=== PATIENT | female | born 1930 | race Caucasian/White ===

== ENCOUNTER 2019-03-25 10:29 | Inpatient (IN) | payer MEDICARE, OTHER ==
[~2019-03-25] VITALS: Ht 172.7 cm; Wt 50.3 kg
[~2019-03-25 10:29] MED LIST: ALBUTEROL0.63 MG/3 PO; BUDESONIDE0.5 MG/2 M NEB; CALCIUM500 MG PO; L ARGININE; LEVOTHYROXINE75 MCG PO; MONTELUKAST SOD10 MG PO; MULTIVITAMIN; NORCO 7.5-3251 EACH PO; OMEPRAZOLE20 M1 PO; PERFOROMIS20 MCG/2 M PO; PROAIR INHALER; TRAMADOL PO; VITAMIN C1000 MG PO; [UNRECOGNIZED DRUG - CODE]; [UNRECOGNIZED DRUG - OTHER]; [UNRECOGNIZED DRUG - OTHER]; [UNRECOGNIZED DRUG - OTHER]
--- NOTE | 2019-03-25 10:53 | NUR ---
rec'd report in walking rounds with rohan carias for continuity of care
[2019-03-25 11:01] LABS: BASOPHILS % 0.2 % (0.0-1.0); EOSINOPHILS # (AUTO) 0.2 (0.0-0.4); EOSINOPHILS % 1.7 % (0.0-6.0); HEMATOCRIT 32.2 % (34.2-44.1); HEMOGLOBIN 10.6 g/dL (12.0-16.0); LYMPHOCYTES # (AUTO) 1.8 (1.0-3.2); LYMPHOCYTES % 13.6 % (18.0-39.1); MEAN CORPUSCULAR HEMOGLOBIN 29.4 pg (28-32); MEAN CORPUSCULAR HGB CONC 32.9 g/dL (31-35); MEAN CORPUSCULAR VOLUME 89.4 fL (81-99); MONOCYTES # (AUTO) 0.7 (0.2-0.8); MONOCYTES % 5.3 % (4.4-11.3); NEUTROPHILS # (AUTO) 10.5 (2.1-6.9); NEUTROPHILS % 78.2 % (38.7-80.0); PLATELET COUNT 415 x10e3/uL (140-360)
--- NOTE | 2019-03-25 11:05 | NUR ---
report to primary nurse.
[2019-03-25 11:15] LABS: BILIRUBIN,URINE NEGATIVE (NEGATIVE); CLARITY,URINE CLEAR (CLEAR); COLOR,URINE YELLOW (YELLOW); KETONES,URINE NEGATIVE (NEGATIVE); LEUKOCYTE ESTERASE ,URINE NEGATIVE (NEGATIVE); NITRITE,URINE NEGATIVE (NEGATIVE); PROTEIN,URINE DIPSTICK NEGATIVE (NEGATIVE); URINE UROBILINOGEN 0.2 mg/dL (0.2 - 1)
[2019-03-25 11:24] LABS: INR 1.02; PROTHROMBIN TIME 13.9 seconds (11.9-14.5)
[2019-03-25 11:25] LABS: BACTERIA,URINE MODERATE /HPF; EPITHELIAL CELLS,URINE FEW /LPF; RBC,URINE 0-5 /HPF (0-5); WBC,URINE (MAN) 0-5 /HPF (0-5)
[2019-03-25 11:32] LABS: ALANINE AMINOTRANSFERASE 10 IU/L (0-55); ALBUMIN 2.8 g/dL (3.5-5.0); ALBUMIN/GLOBULIN RATIO 1.1 (0.8-2.0); ALKALINE PHOSPHATASE 65 IU/L (40-150); ANION GAP 13.3 mmol/L (8-16); BLOOD UREA NITROGEN 14 mg/dL (7-26); BUN/CREATININE RATIO 18 (6-25); CALCIUM 8.9 mg/dL (8.4-10.2); CARBON DIOXIDE 26 mmol/L (22-29); CHLORIDE 100 mmol/L (98-107); CREATINE KINASE 29 IU/L (29-168); CREATININE, SERUM 0.78 mg/dL (0.57-1.11); EST GLOMERULAR FILTRATION RATE > 60 ML/MIN (60-); GLUCOSE 182 mg/dL (74-118); MAGNESIUM 1.9 MG/DL (1.3-2.1); POTASSIUM 4.3 mmol/L (3.5-5.1); SODIUM 135 mmol/L (136-145)
--- NOTE | 2019-03-25 11:38 | Diagnostic Imaging Report ---
Exam: Head CT without contrast History: Syncope Comparison studies: None Technique: Axial images were obtained from the skull base to the vertex. Coronal and sagittal images reconstructed from the axial data. Dose modulation, iterative reconstruction, and/or weight based adjustment of the mA/kV was utilized to reduce the radiation dose to as low as reasonably achievable. Radiation dose: Total DLP: 941.8 mGy*cm. Estimated effective dose: DLP x 0.015 Intravenous contrast: None Findings: Due to suboptimal patient positioning related to the patient's condition, large ulvol-sv-emyi imaging was necessary to complete this exam. There is somewhat limits evaluation of fine detail. In spite of limitations: Scalp: No abnormalities. Bones: No fractures, blastic or lytic lesions. Brain sulci: Moderately prompt. Ventricles: Moderate compensatory dilatation. No hydrocephalus. Extra-axial spaces: No masses, no fluid collection. Parenchyma: No mass, acute hemorrhage or acute or chronic cortical insults. Confluent hypodensities in the supratentorial white matter are nonspecific but are most compatible with chronic microvascular ischemic changes. Sellar/suprasellar region: No abnormalities. Craniocervical junction: Patent foramen magnum. No Chiari one malformation. Included paranasal sinuses: Clear. Middle ear and mastoid cavities: Clear. Incidental findings: Multilevel degenerative changes in the included cervical spine. Atherosclerotic calcifications in the carotid siphons and intradural vertebral arteries. IMPRESSION: No acute intracranial abnormalities. Chronic findings: 1. Moderate generalized parenchymal volume loss. 2. Moderate chronic microvascular ischemic changes. Signed by: Dr. Wisam Huitron M.D. on 03/25/2019 11:35 AM
--- NOTE | 2019-03-25 11:45 | NUR ---
Shelby ren in [facility] - 03/25/19 at 1145 by TESS pt [facility]
--- NOTE | 2019-03-25 11:46 | NUR ---
pt. stated, "my stomach hurts when i breath."
[2019-03-25 11:51] LABS: THYROID STIMULATING HORMONE 2.877 uIU/mL (0.350-4.940)
--- NOTE | 2019-03-25 12:01 | Diagnostic Imaging Report ---
EXAMINATION: CHEST SINGLE (PORTABLE) INDICATION: Syncope COMPARISON: None FINDINGS: LINES/TUBES:EKG leads overlie the chest. LUNGS:The lungs are mildly hyperinflated. There is bilateral bronchiectasis and bronchial wall thickening. Bilateral emphysematous changes. No focal consolidation or pulmonary edema. PLEURA:No pleural effusion or pneumothorax. MEDIASTINUM:The cardiomediastinal silhouette appears normal in size and shape. Atherosclerotic calcifications of the thoracic aorta. BONES/SOFT TISSUES:No acute osseous injury. ABDOMEN:No free air under the diaphragm. IMPRESSION: Hyperinflated lungs and emphysematous changes. Diffuse mild bronchiectasis and bronchial wall thickening can be seen with bronchitis. Signed by: Vasiliy Trejo MD on 03/25/2019 11:57 AM
--- NOTE | 2019-03-25 12:31 | NUR ---
PLACED ON THE BEDPAN
--- NOTE | 2019-03-25 14:05 | NUR ---
ATTEMPTED TO ASSIST PT TO BSC AND SHE BECAME VERY SHORT OF BREATH. PLACED ON BEDPAN AT THIS TIME. UPDATED ON PENDING ADMIT TO RM 102.
--- OUTSIDE RECORDS SUMMARY | 2019-03-25 14:26 | XMS REPORT ---
Author Author [facility] Address Unknown Phone Unavailable Care Team Providers Care Lead Nurse Name Role Phone Newton FINK Unavailable Unavailable Problems This patient has no known problems. Allergies, Adverse Reactions, Alerts This patient has no known allergies or adverse reactions. Medications This patient has no known medications. Results Test Description Test Time Test Comments Text Results Atomic Results Result Comments CHEST SINGLE (PORTABLE) 2019-03-25 11:55:00 [place] [address] Patient Name: DARYL MCDONALD MR #: [id number] : 1930 Age/Sex: 88/F Req #: [id number] Adm Physician: Ordered by: MARTÍN BYERS ASSOCIATE PUBLISHER Report #: [id number] Location: ER Room/Bed: Procedure: [id number] DX/CHEST SINGLE (PORTABLE) Exam Date: 03/25/19 Exam Time: 1105 REPORT STATUS: Signed EXAMINATION: CHEST SINGLE (PORTABLE) I NDICATION: Syncope COMPARISON: None FINDINGS: LINES/TUBES:EKG leads overlie the chest. LUNGS:The lungs are mildly hyperinflated. There is bilateral bronchiectasis and bronchial wall thickening. Bilateral emphysematous changes. No focal consolidation or pulmonary edema. PLEURA:No pleural effusion or pneumothorax. MEDIASTINUM:The cardiomediastinal silhouette appears normal in size and shape. Atherosclerotic calcifications of the thoracic aorta. BONES/SOFT TISSUES:No acute osseous injury. ABDOMEN:No free air under the diaphragm. IMPRESSION: Hyperinflated lungs and emphysematous changes. Diffuse mild bronchiectasis and bronchial wall thickening can be seen with bronchitis. Signed by: Cam Pinon MD on 03/25/2019 11:57 AM Dictated By: CAM PINON MD 1157 Transcribed By: KIMBER on 03/25/19 1157 COPY TO: MARTÍN BYERS NP CT BRAIN WO 2019-03-25 11:27:00 [place] [address] Patient Name: DARYL MCDONALD MR #: [id number] : 1930 Age/Sex: 88/F Req #: [id number] Adm Physician: Ordered by: MARTÍN BYERS ASSOCIATE PUBLISHER Report #: [id number] Location: ER Room/Bed: Procedure: [id number] CT/CT BRAIN WO Exam Date: 03/25/19 Exam Time: 1100 REPORT STATUS: Signed Exam: Head CT without contrast History: Syncope Compari son studies: None Technique: Axial images were obtained from the skull base to the vertex. Coronal and sagittal images reconstructed from the axial data. Dose modulation, iterative reconstruction, and/or weight based adjustment of the mA/kV was utilized to reduce the radiation dose to as low as reasonably achievable. Radiation dose: Total DLP: 941.8 mGy*cm. Estimated effective dose: DLP x 0.015 Intravenous contrast: None Findings: Due to suboptimal patient positioning related to the patient's condition, large ewhvz-kw-jirz imaging was necessary to complete this exam. There is somewhat limits evaluation of fine detail. In spite of limitations: Scalp: No abnormalities. Bones: No fractures, blastic or lytic lesions. Brain sulci: Moderately prompt. Ventricles: Moderate compensatory dilatation. No hydrocephalus. Extra-axial spaces: No masses, no fluid collection. Parenchyma: No mass, acute hemorrhage or acute or chronic cortical insults. Confluent hypodensities in the supratentorial white matter are nonspecific but are most compatible with chronic microvascular ischemic changes. Sellar/suprasellar region: No abnormalities. Craniocervical junction: Patent foramen magnum. No Chiari one malformation. Included paranasal sinuses: Clear. Middle ear and mastoid cavities: Clear. Incidental findings: Multilevel degenerative changes in the included cervical spine. Atherosclerotic calcifications in the carotid siphons and intradural vertebral arteries. IMPRESSION: No acute intracranial abnorm alities. Chronic findings: 1. Moderate generalized parenchymal volume loss. 2. Moderate chronic microvascular ischemic changes. Signed by: Dr. Debora Huitron M.D. on 03/25/2019 11:35 AM Dictated By: DEBORA HUITRON MD 1135 Transcribed By: KIMBER on 03/25/19 1139 COPY TO: MARTÍN BYERS NP
--- NOTE | 2019-03-25 14:52 | NUR ---
Lora CALLED FOR [facility] FOR THIS PT. AND SPOKE WITH YULISA
[2019-03-25] MEDS ORDERED: ALBUTEROL/IPRATROPIUM 3 ML NEB NEB ONE (15:00)
--- NOTE | 2019-03-25 15:01 | NUR ---
TELE #2 PLACED ON THE PT. YULY TX IN PROGRESS. REPORT CALLED TO M-S 1 FOR THIS PT TO GO TO RM 102
--- NOTE | 2019-03-25 15:16 | Diagnostic Imaging Report ---
EXAM: CT Abdomen and Pelvis WITH intravenous contrast INDICATION: Abdominal pain COMPARISON: None. TECHNIQUE: Abdomen and pelvis were scanned utilizing a multidetector helical scanner from the lung base to the pubic symphysis after administration of IV contrast. Coronal and sagittal reformations were obtained. Routine protocol was performed. Scan was performed during portal venous phase. IV CONTRAST: 100mL of Isovue 370 ORAL CONTRAST: Water RADIATION DOSE: Total DLP: 200.9 mGy*cm Dose modulation, iterative reconstruction, and/or weight based adjustment of the mA/kV was utilized to reduce the radiation dose to as low as reasonably achievable. FINDINGS: LOWER THORAX: Moderate sliding hiatal hernia. HEPATOBILIARY: 1.3 cm hypodense right hepatic lesion (series 2 image 13) is indeterminate on this single phase CT. No other focal liver lesions. No biliary ductal dilation. Unremarkable gallbladder. SPLEEN: No splenomegaly. PANCREAS: No focal masses or ductal dilatation. ADRENALS: No adrenal nodules. KIDNEYS/URETERS: No hydronephrosis, stones, or solid mass lesions. PELVIC ORGANS/BLADDER: Evaluation limited by streak artifact related to right total hip replacement. PERITONEUM / RETROPERITONEUM: There is a 10.0 x 8.3 x 10.0 cm retroperitoneal mass with central hypoattenuation consistent with necrosis. The mass extends from the level of the aortic bifurcation inferiorly into the pelvis. There is mass effect on adjacent loops of bowel. No definite encasement of adjacent neurovascular structures. Small volume ascites in the abdomen and pelvis. VESSELS: Diffuse atherosclerotic calcifications of the nonaneurysmal abdominal aorta and major branches. GI TRACT: No abnormal bowel wall thickening. No bowel obstruction. BONES AND SOFT TISSUES: Diffuse osteopenia. Postoperative findings of right total hip replacement. No acute osseous injury. No suspicious lytic or blastic lesions. Degenerative changes of the visualized spine. Grade 1 retrolisthesis at L2-3 and L3-4. 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 Findings are concerning for malignancy, with lymphoma likely the leading differential. Moderate sliding hiatal hernia. 1.3cm hypodense right liver lesion is indeterminate on this single phase CT. Signed by: Vasiliy Trejo MD on 03/25/2019 3:13 PM
--- NOTE | 2019-03-25 15:35 | NUR ---
Received patient via stretcher from ER. Accompanied by daughters. JOSE GOX3 to time, person, place. Respirations even and unlabored. O2 3L NC. Oriented patient and family to room. Instructed to use call light for assistance.
[2019-03-25 16:01] VITALS: BP 138/80
[2019-03-25] MEDS ORDERED: VITAMIN D250000 UNIT PO (16:13)
[2019-03-25] MEDS ORDERED: melatonin PO (16:13)
[2019-03-25] MEDS ORDERED: ARGININE PO (16:13)
[2019-03-25] MEDS ORDERED: HYDROXYZINE HCL25 MG PO (16:13)
[2019-03-25] MEDS ORDERED: MULTI-VITAMIN1 EACH PO (16:13)
[2019-03-25] MEDS ORDERED: [UNRECOGNIZED DRUG - OTHER] PO (16:13)
--- NOTE | 2019-03-25 16:15 | NUR ---
Notified of consult. declined consult. Paged to notify.
[2019-03-25 16:16] VITALS: BP 138/80
[2019-03-25 16:23] VITALS: BP 138/80
--- NOTE | 2019-03-25 17:35 | NUR ---
Patient states "I feel the urge to void, but I cant" Bladder scan done 183ml noted. Paged to notify of patient's status.
--- NOTE | 2019-03-25 17:55 | NUR ---
16F pearson catheter inserted by Ping Schneider RN using sterile technique. Edgar LOONEY at bedside. clear yellow urine draining.
[2019-03-25] MEDS ORDERED: SODIUM CHLORIDE 0.9% 50ML 50 ML ONE (18:24)
[2019-03-25] MEDS ORDERED: IOPAMIDOL 370 MG/ML 200 ML INFUS..BTL INJ ONE (18:24)
[2019-03-25] MEDS ORDERED: MELATONIN 10 MG PO PRN (18:45)
[2019-03-25] MEDS ORDERED: HYDROXYZINE HCL 25 MG TAB PO PRN (18:45)
--- NOTE | 2019-03-25 18:49 | NUR ---
Report given to oncoming nurse of patient's status. Patient resting in bed. No s/s of acute distress noted. Side rails upx2, call light within reach, bed alarm on.
--- NOTE | 2019-03-25 19:15 | NUR ---
Received bedside report from day nurse. Patient resting in bed, alert and oriented, no s/s of distress or c/o pain at this time. All safety measures in place. Will continue to monitor.
--- NOTE | 2019-03-25 19:16 | NUR ---
Per day nurse, 200 ml of urine was noted upon Childers insertion.
--- NOTE | 2019-03-25 19:17 | NUR ---
Per day nurse, Dr. Morales is okay with brain MRI, carotid doppler, and echo being done tomorrow.
[2019-03-25] MEDS ORDERED: MELATONIN 5 MG TABLET PO PRN (19:30)
[2019-03-25] MEDS ORDERED: ACETAMINOPHEN 325 MG TAB PO PRN (19:30)
[2019-03-25] MEDS ORDERED: SODIUM CHLORIDE 0.9% 1000ML 1,000 ML IV SCH (19:30)
--- NOTE | 2019-03-25 19:56 | NUR ---
Patient requested breathing treatments. Called Dr. Morales and received orders for breathing treatments every six hours as needed. Respiratory therapist notified. Patient does not appear to be in respiratory distress at this time. All safety measures in place. Will continue to monitor.
[2019-03-25 20:27] VITALS: BP 115/66
[2019-03-25] MEDS: MONTELUKAST SODIUM 10 MG TAB PO SCH (20:32)
[2019-03-25] MEDS: ONDANSETRON HCL INJ 2MG/ML 2ML 2 MG/ML VIAL IV PRN (20:44)
[2019-03-25] MEDS: HYDROCODONE/APAP 5MG-325MG TAB PO PRN (20:44)
[2019-03-25] MEDS: ALBUTEROL/IPRATROPIUM 3 ML NEB NEB PRN (20:50)
[2019-03-25 21:00] VITALS: BP 115/66
[2019-03-26] VITALS (8 sets, daily range): BP systolic 115–136; BP diastolic 57–79
[2019-03-26] MEDS: ALBUTEROL/IPRATROPIUM 3 ML NEB NEB PRN ×3 (02:40→11:13)
[2019-03-26] MEDS: LEVOTHYROXINE SODIUM 75 MCG TAB PO SCH (06:18)
--- NOTE | 2019-03-26 06:20 | NUR ---
Alvarado DUNCAN'tyler per Dr. Morales's orders. Balloon intact upon removal. Patient due to void. Bedside commode placed at bedside. Patient instructed to call for assistance when getting out of bed, verbalized understanding. Call light within reach. All safety measures in place. Will continue to monitor.
--- NOTE | 2019-03-26 06:38 | NUR ---
Patient reports difficulty breathing. Called Dr. Morales, received orders to stop fluids and change breathing treatments to every four hours as needed. Will continue to monitor patient.
--- NOTE | 2019-03-26 06:45 | NUR ---
Patient requesting breathing treatment at this time. termite control technician notified, currently on way. Will continue to monitor patient. Bed in high rizvi's position. All safety measures in place.
--- NOTE | 2019-03-26 07:21 | NUR ---
Patient requested head of bed to be lowered. Still complaining of difficulty breathing. No adventitious breath sounds noted bilaterally. Chest x-ray ordered per Dr. Morales. All safety measures in place. Will continue to monitor patient. Addendum: 03/26/19 at 0723 by Carrie Vee RN HOB lowered to semi-Laguerre's position per patient request. States it helps her feel less anxious and less short of breath.
[2019-03-26 08:12] LABS: BASOPHILS % 0.1 % (0.0-1.0); HEMATOCRIT 31.4 % (34.2-44.1); HEMOGLOBIN 10.3 g/dL (12.0-16.0); LYMPHOCYTES # (AUTO) 1.4 (1.0-3.2); LYMPHOCYTES % 5.2 % (18.0-39.1); MEAN CORPUSCULAR HEMOGLOBIN 29.4 pg (28-32); MEAN CORPUSCULAR HGB CONC 32.8 g/dL (31-35); MEAN CORPUSCULAR VOLUME 89.7 fL (81-99); MONOCYTES # (AUTO) 2.2 (0.2-0.8); MONOCYTES % 8.1 % (4.4-11.3); NEUTROPHILS # (AUTO) 23.6 (2.1-6.9); NEUTROPHILS % 85.9 % (38.7-80.0); PLATELET COUNT 419 x10e3/uL (140-360); RED CELL DISTRIBUTION WIDTH 13.3 % (11.7-14.4)
[2019-03-26] MEDS ORDERED: CEFTRIAXONE SOD 1 GM VIAL IV SCH (08:15)
--- NOTE | 2019-03-26 08:19 | Diagnostic Imaging Report ---
Examination: Single AP view of the chest. COMPARISON: 03/25/2019 INDICATION: Dyspnea DISCUSSION: As before, the lungs are hyperinflated with scattered foci of perihilar bronchiectasis. No new consolidation or effusion. Stable cardiomediastinal contour with tortuosity and atherosclerotic calcification of the thoracic aorta. Small hiatal hernia. No acute osseous abnormalities. Bilateral acromioclavicular and glenohumeral degenerative changes. 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 Signed by: Dr. Wisam Bosch M.D. on 03/26/2019 8:16 AM
[2019-03-26 08:21] LABS: ANION GAP 17.7 mmol/L (8-16); BLOOD UREA NITROGEN 24 mg/dL (7-26); BUN/CREATININE RATIO 31 (6-25); CARBON DIOXIDE 23 mmol/L (22-29); CHLORIDE 98 mmol/L (98-107); CREATININE, SERUM 0.78 mg/dL (0.57-1.11); EST GLOMERULAR FILTRATION RATE > 60 ML/MIN (60-); GLUCOSE 117 mg/dL (74-118); POTASSIUM 4.7 mmol/L (3.5-5.1); SODIUM 134 mmol/L (136-145)
--- NOTE | 2019-03-26 08:21 | NUR ---
Report given to charge nurse. Rounded on patient with Dr. Morales. Received additional orders. Patient resting in bed, no s/s of distress or c/o pain at this time. All safety measures in place.
[2019-03-26] MEDS ORDERED: FUROSEMIDE INJ 10 MG/ML 4 ML VIAL IV NR (08:30)
[2019-03-26] MEDS: MULTIVITAMINS/MINERALS TAB PO SCH (09:00)
[2019-03-26] MEDS: [UNRECOGNIZED DRUG - OTHER] PO SCH (09:00)
[2019-03-26] MEDS: ARGININE PO SCH (09:00)
[2019-03-26] MEDS: DOCUSATE SODIUM 100 MG CAP PO SCH ×2 (09:00→17:01)
[2019-03-26] MEDS ORDERED: PANTOPRAZOLE SOD 40 MG TABEC PO SCH (09:00)
[2019-03-26] MEDS: ONDANSETRON HCL INJ 2MG/ML 2ML 2 MG/ML VIAL IV PRN ×3 (09:35→23:01)
--- NOTE | 2019-03-26 09:50 | NUR ---
Assessment completed and the family 5 Addendum: 03/26/19 at 0955 by Ofelia Looney RN cont above note. The family reports that the pt has not voided since the cath was removed and palpatation of the bladder area reveals tenderness and pain.
[2019-03-26 10:21] LABS: BAND NEUTROPHILS % (MANUAL) 1 %; EOSINOPHILS % (MANUAL) 1 % (0-7); LYMPHOCYTES % (MANUAL) 5 % (19-48); MONOCYTES % (MANUAL) 8 % (3.4-9.0); NEUTROPHILS % (MANUAL) 85 % (40-74)
[2019-03-26 10:22] LABS: BURR CELLS SLIGHT; POIKILOCYTOSIS SLIGHT
[2019-03-26 10:23] LABS: PLATELET ESTIMATE SLIGHTLY INCREASED; PLATELET MORPHOLOGY COMMENT NORMAL; RBC MORPHOLOGY COMMENT ABNORMAL
--- NOTE | 2019-03-26 10:43 | NUR ---
Bladder scan completed prior to replacing the catheter and the scan reveals greater than 300cc's and the pt. does not have iv fluids although she is n p o . The iv fluids were red Addendum: 03/26/19 at 1048 by Ofelia Looney RN restarted and the pt. and family reminded to maintain n p o status. dark yellow urinf was returned.
[2019-03-26] MEDS: CEFTRIAXONE SOD 1 GM/NS 50 ML 50 ML IV SCH (10:55)
[2019-03-26] MEDS: ENOXAPARIN SOD INJ 40 MG/0.4 ML SYR SC SCH (10:59)
--- NOTE | 2019-03-26 11:15 | NUR ---
WOUND CARE CONSULT 88YO FEMALE HX OF SYNCOPAL EPISODES , SACRAL STAGE 2 ULCERATION SUSIE 14 ON MODERATE PUP AND ALTERNATING PRESSURE SURFACE LABS: WBC- 13.43,HGB-10.6,GLUCOSE-182 SKIN ASSESSMENT COMPLETE PATIENT PRESENTS WITH STAGE 2 ULCERATION TO SACRUM [id number] BLISTER SURROUNDING SKIN PINK AND BLANCHABLE RECOMMENDATIONS: NURSING TO CONTINUE TO MAINTAIN MODERATE PUP STATUS AND ALTERNATING PRESSURE SURFACE NURSING TO CONTINUE TO ASSIST PATIENT OUT OF BED FOR MEALS AND MUCH TOLERATED NURSING TO CONTINUE TO MAINTAIN BILATERAL HEEL PROTECTORS AND PILLOW SUSPENSION OF HEELS WHEN IN BED NURSING TO APPLY DAILY VENELEX OINTMENT TO SACRAL STAGE 2 ULCER COVER WITH ALLEVYN FOAM Addendum: 03/26/19 at 1121 by Charles Aguilar RN Amended: Links added.
--- NOTE | 2019-03-26 12:17 | NUR ---
The pt. was sent for MRI and was brought back to the unit without completion due to the pt's inability to lay flat.
--- NOTE | 2019-03-26 13:00 | NUR ---
Visit made by CHANDANA Roth. Pt sleeping soundly and no family present. Rn Urology left a card describing availability of night stocker and instructions on how to contact a night stocker. RUBI HARGROVE Rn Urology Spiritual Care Department O: [phone] Pager: [phone] ([phone] number calling from)
[2019-03-26] MEDS: ALBUTEROL/IPRATROPIUM 3 ML NEB NEB SCH ×3 (14:13→23:23)
--- NOTE | 2019-03-26 15:00 | NUR ---
The urologist has seen the pt. and no orders received.
--- NOTE | 2019-03-26 15:54 | Consultation ---
DATE OF CONSULTATION: Cardiac Consultation REASON FOR CONSULTATION: Syncope. 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 The patient is taken care by her daughter and son-in-law. She lives with them. The patient's activities are really limited. She does have shortness of breath, easy fatigability, and weakness. The patient is in her usual status of health. Usually, she does have chronic constipation. She is weak. She is on oxygen and her main problem is shortness of breath. The patient started for the last couple of days prior to admission, having severe chest pain. No fever. The patient felt cold. The patient felt weak and nauseated and abdominal pain. With that, she slumped over. She was seen by the ambulance people ,was hypotensive. She brought to this institution. She was given IV fluids. Her workup showed EKG to be showing normal sinus rhythm. Her CT head is negative. Her chest x-ray showing emphysematous changes and calcification of the aorta and hiatus hernia. More important, her abdominal CT showed large retroperitoneal mass 10 x 8 x 10 cm with necrotizing core. Also, she did not spike fever. She has in fact normal temperature, but her white blood cell count is at 27.4. She was started on antibiotics. She has continued her nebulizer, her oxygen, placed on telemetry and cardiac consultation is obtained. I visited with the patient. She is delightful. Information taken from her and her family. Her main problem is abdominal pain and this episode of syncope, which is preceded by abdominal pain. Her activities are very very much limited. She is on oxygen. She does have shortness of breath on minimal activity. She is having abdominal symptoms. She denied having any angina. There is no orthopnea, no paroxysmal nocturnal dyspnea. She does have cough. There is no pleuritic nor pericarditic component of chest pain. REVIEW OF SYSTEMS: Extensive to all systems, will be summarized for clarity. GENERAL: No fever. No chills except recently she is feeling a little bit not so well. However, interestingly, she lost weight over the last couple of years and she was attributed to poor appetite. HEENT: No hearing, no vision problem. PULMONARY: As per above. Basically, the patient is on home oxygen. CARDIAC: As per above. GI: As per acute illness. The patient usually is constipated, but recently she is having abdominal pain, nausea and not feeling well. : The patient sometime incontinent. MUSCULOSKELETAL: Back pain, knee pain. NEUROLOGICAL: No seizure activity. No localized deficits. HEMATOLOGY: No easy bruising or bleeding. ENDOCRINE: She is not diabetic. No polyuria. No polydipsia. SKIN: There are no skin rash or lesions. SOCIAL HISTORY: She is born in [place]. She has never smoked, but there is known etiology for her chronic emphysema, possible secondhand smoking. She is non-alcohol drinker. She is a retired sleep technician. HOME MEDICATIONS: Include levothyroxine 75 mcg a day, Singulair 10 mg a day, home oxygen, vitamin D2, hydroxyzine, multivitamin, melatonin, Prilosec, and other p.r.n. medications. ALLERGIES: NONE. PAST MEDICAL HISTORY: 1. Chronic lung disease, on home oxygen. 2. Hypothyroidism. 3. Weight loss. 4. Chronic constipation. 5. Right hip replacement. 6. Advanced lung disease with FEV1 of 40%. 7. Hysterectomy. FAMILY HISTORY: Father of car accident. Mother in her 80s with hardening of the arteries. Her only full brother to cancer of the lung in his 70s. She lost all 3 sisters, she is the youngest to CVA, hypertension, and coronary artery disease. She does have 3 sons and 3 daughters. One of her sons had open-heart surgery in his 60s. PHYSICAL EXAMINATION: GENERAL: Very thin lady. Height of 5 feet 8 inches, weight of 106 pounds, on oxygen. Blood pressure 110/70, heart rate of 100, respiratory rate of 20, and temperature of 98 Fahrenheit. HEENT: Pupils are reactive. NECK: No elevation of jugular venous pulsation. No bruit. CHEST: Marked decreased lung expansion, but clear to auscultation and percussion. HEART: PMI 5th left intercostal space. Normal first and second heart sounds. ABDOMEN: Soft with good bowel sounds. No organomegaly. No abdominal bruits. EXTREMITIES: No cyanosis. No clubbing. No edema. No signs of deep venous thrombosis. NEUROLOGIC: Awake, alert, oriented. No motor or sensory deficits. LABORATORY DATA: Sodium of 134, potassium of 4.7, BUN 24, and creatinine of 0.8. White blood cell count of 27,000, hemoglobin of 10.3, and hematocrit 31%. Chest x-ray showing hiatus hernia, chronic emphysematous changes, and calcified aorta. CT head, no acute changes. Abdominal CT scan, large retroperitoneal mass 10 x 8 x 10 cm. IMPRESSION AND PLAN: 1. Syncope. The most likely is vasovagal with abdominal pain. 2. Abdominal mass, most likely malignancy, cause of acute illness and maybe there is bleeding and the mass leading to the acute illness and possible secondary infection because of elevated white blood cell count. 3. Very severe advanced lung disease, on home oxygen. 4. Hypothyroidism. 5. Debility. 6. Probability of coronary artery disease in this age group, but no active symptoms. 7. From a cardiac point of view, I discussed at length with the patient's family and explained the condition. The plan is only observation, gentle hydration, IV antibiotics as done, workup for the abdominal mass. We will review her echocardiogram. We will review her carotid Dopplers are done. Will be on observation and supportive to the other physician while workup for this abdominal pain and this acute illness. We discussed if the patient in need for major surgery. She is at very very very high risk because of the very severe advanced lung disease, but we need to wait before we make any decision for the initial workup and investigation. The patient attended for almost 70 to 80 minutes going over all the data, since the patient having all these diagnoses and questionable lungs, heart, and abdominal mass, etc. We will follow the patient's progression with you. MD VENKATESH Sellers/PAOLO /[id number]
--- NOTE | 2019-03-26 16:06 | Diagnostic Imaging Report ---
EXAM: CT Chest WITH contrast- Pulmonary Embolism Protocol INDICATION: Shortness of breath COMPARISON: Chest radiograph of earlier the same day TECHNIQUE: Chest was scanned utilizing a multidetector helical scanner from the lung apex through the level of the diaphragm after administration of IV contrast. Thin section reconstructions were obtained with special concentration on the pulmonary arteries. Coronal and sagittal reformations were obtained. Pulmonary embolism protocol was performed. IV CONTRAST: 100 cc of Isovue 370 RADIATION DOSE: Total DLP: 371.3 mGy*cm Dose modulation, iterative reconstruction, and/or weight based adjustment of the mA/kV was utilized to reduce the radiation dose to as low as reasonably achievable. COMPLICATIONS: None FINDINGS: LINES/ TUBES: None. PULMONARY ARTERIES: No filling defect is identified within the pulmonary arteries to the segmental level. The subsegmental pulmonary arteries are not well opacified. Main pulmonary artery measures 2.4 cm in diameter. LUNGS AND AIRWAYS: The central airways are patent. The lungs are hyperinflated. Images are degraded by respiratory motion artifact. Biapical pleural parenchymal thickening/scarring. Scattered areas of tree-in-bud nodularity, for example at the posterior right lower lobe (series 3 image 52). No other focal consolidation. No pulmonary edema. Scattered 3 mm bilateral pulmonary micronodules. PLEURA: The pleural spaces are clear. HEART AND MEDIASTINUM: Partially visualized atrophic appearing thyroid gland. No supraclavicular, mediastinal, or hilar lymphadenopathy. The heart is not enlarged. No pericardial effusion. Scattered atherosclerotic calcifications of the coronary arteries, aorta, and proximal great vessels. Patulous esophagus throughout its entire course with dependent fluid in the distal esophagus. UPPER ABDOMEN: Large hiatal hernia . No focal abnormality of the partially visualized liver, spleen, kidneys, adrenals, or pancreas. BONES: No acute osseous injury. No suspicious lytic or blastic lesions. Mild degenerative changes of the visualized spine. SOFT TISSUES: Unremarkable. IMPRESSION: No pulmonary embolism. Dilated esophagus with dependent fluid in the distal esophagus which terminates in a large hiatal hernia. Given this finding, scattered tree-in-bud nodularity most notably at the dependent right lower lobe is likely related to aspiration. Hyperinflated lungs, evaluation degraded by respiratory motion artifact. Scattered 3 mm bilateral pulmonary micronodules. If the patient is low risk, no further imaging follow-up is needed. If the patient is high risk, CT in 12 months is optional. Atherosclerotic calcifications including of the coronary arteries. Signed by: Vasiliy Trejo MD on 03/26/2019 4:03 PM
--- NOTE | 2019-03-26 16:23 | NUR ---
Nutrition Intervention Note RD Recommendation(s) for Physician: -When appropriate, recommend Ensure Enlive BID for added nutrition and Cuong BID for wound healing -Recommend regular diet when medically appropriate Plan of Care: RD following, monitoring for tolerance and adequacy Nutrition reason for involvement: consult for nutrition assessment, MERON RD Assessment (03/16/19) Pt is an 88 year old female admitted with syncopy. At time of visit, RN reported pt is currently NPO. Spoke to family members and pt. Pt reports she has been eating < 50% of meals for about 3 months prior to admission. Pt drinks protein nutrition supplement drinks at home. Pt also mentioned she used to weigh 140 lbs a couple of years ago and now weighs 98 lbs. However, pt currently has a wt of 106 lbs in chart. It is noted that pt has a stage 2 sacral pressure ulcer per wound care note. Pt reports some N/V. No chewing/swallowing issues. Will continue to monitor unless consulted sooner. Principal Problems/Diagnoses: syncopy PMH: COPD I/O: 880/460 GI: flat, soft nontender abdomen Skin: stage 2 sacrum pressure ulcer Labs: (03/26/19) Na 134 Meds: (03/26/19) zofran, levothyroxine, colace, protonix, multivitamin with minerals, ergocalciferol Ht: 68 inches Wt: 106 lbs BMI: 16.1 kg/m2 IBW: 140 lbs Malnutrition Evaluation (03/26/19) The patient meets criteria for unspecified SEVERE protein-calorie malnutrition. Energy intake: <75% of estimated energy requirements for 3 months Weight loss: Pt mentioned she used to weigh 140 lbs a couple of years ago and now weighs 98 lbs. However, pt currently has a wt of 106 lbs in chart. Fat loss and Muscle loss: Pt showed severe signs of generalized muscle and fat depletion Supporting Evidence: Fluid accumulation: unable to evaluate Functional Status: unable to evaluate Nutrition Prescription (Diet Order): NPO per RN Estimated Nutritional Needs: 6965-5252 calories/day (30-35 kcal/kg CBW) 72-96 g protein/day (1.5-2 g pro/kg CBW) Diet Adequacy: Not meeting calorie needs, Not meeting protein needs Tolerance: Pt is currently NPO per RN Diet Education Needs Assessment: RD is available for diet education as needed Nutrition Care Level: moderate Nutrition Diagnosis: Severe protein kcal malnutrition related to h/o inadequate energy intake as evidenced by pt meeting < 75% of energy needs for > 1 month and severe generalized muscle and fat depletion Goal: Patient will meet 75-100% of estimated needs by follow up Progress: N/A Interventions: -Commercial beverage, Recommended Modifications Monitoring/Evaluation: -Total energy intake, Total protein intake, Liquid supplement, Weight change Signed: Naye Knowles RD, LD
--- NOTE | 2019-03-26 16:56 | History and Physical ---
REASON FOR ADMISSION: Abdominal pain, presyncopal episode. HISTORY OF PRESENT ILLNESS: An 88-year-old female with history of acid reflux, hypothyroidism, comes into the emergency room yesterday with complaints of presyncopal episode yesterday, as she was going to the bedside commode. The patient reports that she has been losing significant amount of weight over the last several months unintentionally. The patient looks severely cachectic on examination. The patient also endorses having some abdominal pain ongoing for acute onset that began several days ago. Reports that she has epigastric abdominal pain. No nausea, but has been having decreased oral intake. Also reports having some lightheadedness and dizziness history as she was going to the bedside commode. She did not lose consciousness according to the report. No reports of any slurred speech, facial droop, or any stroke-like symptoms. No reports of any seizure-like activity. No reports of chest pain or any palpitations. The patient was seen and evaluated at bedside on the medical floor. She is currently complaining of abdominal pain. CT imaging shows intraabdominal mass concerning for underlying lymphoma. The patient reports she has been losing significant amount of weight over the several months. Several consultants have been consulted. REVIEW OF SYSTEMS: Pertinent positives: Abdominal pain, lightheadedness, dizziness. Pertinent negatives: Denies any chest pain, palpitation, nausea, vomiting, diarrhea, dysuria, hematuria, frequency, urgency, headaches, shortness of breath, cough, congestion, fever, or any other complaints. The rest of 14-point review of systems are reviewed with the patient and are negative. ALLERGIES: NO KNOWN DRUG ALLERGIES. HOME MEDICATIONS: 1. Ergocalciferol 50,000 units per week. 2. Hydroxyzine p.r.n. for itching. 3. Levothyroxine 75 mcg daily. 4. Singulair 10 mg daily. 5. Multivitamin. 6. Omeprazole. 7. Melatonin. PAST MEDICAL HISTORY: Hypothyroidism. PAST SURGICAL HISTORY: Reports none. FAMILY HISTORY: Hypertension and diabetes. SOCIAL HISTORY: No drugs. No alcohol. Does not smoke. Lives with her family. PHYSICAL EXAMINATION: VITAL SIGNS: Temperature is 98.7, pulse is 110, respiratory rate is 24, blood pressure 136/69, pulse ox 94% on 3 L nasal cannula. GENERAL: Not in acute distress. Alert and oriented x3. Cooperative on examination. HEENT: Head; normocephalic, atraumatic. Eyes; pupils are equal, round, and reactive to light bilaterally. Extraocular movements intact bilaterally. Throat; no evidence of erythema or exudates in the posterior pharynx. Has poor dentition. NECK: Supple. Good range of motion. PULMONARY: Clear to auscultation. No expiratory wheezing appreciated. No crackles. No rales. CARDIOVASCULAR: Positive S1 and S2. No murmurs, rubs, or gallops appreciated. ABDOMEN: Soft, nondistended, and nontender to palpation. Bowel sounds present. MUSCULOSKELETAL: She is just very cachectic on examination. NEUROLOGIC: Cranial nerve II through XII grossly intact. No evidence of any neurological deficits on exam. SKIN: Intact. Warm to touch. Good cap refill. PSYCHIATRIC: Normal affect and mood. EXTREMITIES: No edema. Good range of motion throughout. LABORATORY FINDINGS: Show white count was 13.4, but repeat this morning shows 27.4, hemoglobin 10.3, hematocrit 31, platelets of 419. Coagulation; PT 13, INR 1, PTT 26. Chemistry; sodium 134, potassium 4.7, chloride 98, bicarb 23, anion gap of 17, BUN 24, creatinine 0.78, glucose 117, calcium is 9. Troponins were slightly elevated. Albumin 2.8, TSH 2.8, CK 29. LFTs within normal range. Urinalysis negative. MICROBIOLOGY: Urine cultures are pending, but no growth to-date. IMAGING STUDIES: Chest x-ray shows hyperinflated lungs and emphysematous changes. Diffuse mild bronchiectasis and bronchial wall thickening can be seen with bronchitis. CT brain shows no acute intracranial abnormalities. CT abdomen and pelvis shows a large retroperitoneal mass measuring 10 x 8.3 x 10 cm with central hypoattenuation consistent with necrosis. Findings concerning for underlying malignancy with lymphoma is a possibility. Moderate sliding hiatal hernia 1.3 cm hypodense for liver lesion, indeterminate on a single face CT. Repeat chest x-ray from this morning shows emphysematous changes and probable postinfectious bronchiectasis. IMPRESSION: 1. Acute bronchitis with concerns of underlying emphysema-Pulmonary consultation, IV antibiotics initiated, neb treatments, white count was elevated. We will repeat stat labs now as well as get morning labs. 2. 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 3. Severe protein calorie malnutrition-this seems to be likely from underlying malignancy from possible lymphoma, we will go ahead and get a nutrition consultation. Put her on supplemental shakes. Start her on a banana bag for vitamin replenishment. 4. Presyncopal episode-this is likely secondary to underlying vasovagal and dehydration. MRI of the brain has been ordered as well as carotid ultrasound. A 2D echo as well as Cardiology consultation has been ordered as well for further evaluation and treatment. 5. Shortness of breath, likely secondary to underlying emphysema-Pulmonary consultation has been ordered as well. Repeat chest x-ray shows emphysema. Lasix has been given as well as DuoNeb treatment. We will go ahead and get a CTA of the chest to rule out PE as the patient reports being very short of breath on examination. 6. PT/OT evaluation and treat. 7. Nutrition consultation. 8. Lovenox for deep vein thrombosis prophylaxis. 9. I will go ahead and resume all her home medications. Otherwise, we will continue with same plan of care. Follow up with consultants recommendations. MD KEMI Jacobson/PAOLO /[id number]
--- NOTE | 2019-03-26 19:10 | NUR ---
Received bedside report from day nurse. Patient resting in bed, no s/s of distress or c/o pain at this time. All safety measures in place. Family at bedside. Will continue to monitor.
--- NOTE | 2019-03-26 19:11 | NUR ---
Per day nurse, a new 16 Fr Childers was inserted after bladder scan showed high residual volume. Time of insertion and post insertion volume not noted.
[2019-03-26] MEDS ORDERED: SODIUM CHLORIDE 0.9% 50ML 50 ML ONE (19:21)
[2019-03-26] MEDS ORDERED: IOPAMIDOL 370 MG/ML 200 ML INFUS..BTL INJ ONE (19:22)
--- NOTE | 2019-03-26 19:23 | NUR ---
Per patient and family request, informed Dr. Oneill that patient would like to proceed with biopsy. Received orders to schedule biopsy with IR on Friday.
[2019-03-26] MEDS: MONTELUKAST SODIUM 10 MG TAB PO SCH (20:33)
--- NOTE | 2019-03-26 21:02 | Consultation ---
DATE OF CONSULTATION: 03/26/2019 Pulmonary Medicine Consult HISTORY OF PRESENT ILLNESS: Ms. Abarca is an 88-year-old female with shortness of breath. The patient with possible COPD. The patient is on home oxygen. The patient's home medications are nebulized albuterol and ipratropium. The patient was diagnosed with asthma at age 20. She has history of some allergies. She has history of GERD on most days. Functionally, the patient needs help on transfers to the wheelchair. She does not really walk more than one or two assisted steps. The patient lives at home with family. PAST MEDICAL HISTORY: Asthma, diagnosed at age 20. Allergies. GERD. Possible COPD. 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 Hiatal hernia. MEDICATIONS: Medication list reviewed per the chart record. ALLERGIES: NO KNOWN DRUG ALLERGIES. SOCIAL HISTORY: The patient never smoked. No drinking. No drugs. The patient was born in [place] and then moved to [place] and then [place] in 1961. FAMILY HISTORY: Noncontributory. REVIEW OF SYSTEMS: GENERAL: No weight changes recently. OPHTHALMOLOGIC: No double vision. ENT: No mouth ulcers. PULMONARY: No hemoptysis. CARDIAC: No heart attack. GI: No diarrhea. : No blood in urine. IMMUNOLOGIC: Mild arthritis, but definitely not limiting. NEUROLOGIC: No seizures. PSYCHIATRIC: No depression. OBJECTIVE: VITAL SIGNS: Afebrile, vital signs noted reviewed per the chart record. GENERAL: In no acute distress. Alert and calm, but looks weak, in bed. HEENT: Normocephalic and atraumatic. NECK: Supple. Throat midline. LUNGS: Bilateral air entry, decreased effort, decreased air entry heard, no wheezing. CARDIOVASCULAR: S1, S2. No murmurs, rubs, or gallops. ABDOMEN: Soft, nontender. EXTREMITIES: No clubbing. No cyanosis. There is 1+ edema to the legs. INTEGUMENT: No rash or purpura. LABORATORY DATA: 27 white count, 31 hematocrit, 419 platelets. 4.7 potassium, 27 BUN, 0.8 creatinine. LFTs were normal. Recent BNP was 59. Albumin was 2.8. Chest x-ray with stable appearance of chest with hyperinflation. Abdominal and pelvic CT with moderate sliding hiatal hernia, lungs clear at the bases. A 10 x 8.3 x 10 cm retroperitoneal mass with central necrosis suggested. 1.3 cm right liver lesion as well. IMPRESSION AND PLAN: 1. Debility/weakness. Reportedly, respiratory limitation in the past, although not now. Weakness is predominant now. 2. Chronic asthma. 3. Allergies. 4. Gastroesophageal reflux disease. 5. Moderate protein-calorie malnutrition. 6. Admitted with syncope. 7. Large retroperitoneal mass 10 cm, 1.3 cm liver lesion. This time, continue nebulized treatments. We will consider steroids if needed. Check IgE level. Continue montelukast. CT chest is ordered to view better and we can assess if there is any underlying parenchymal disease that was contributory to the patient's condition. GERD precautions to be optimized especially with her hiatal hernia. Thank you very much, and Dr. Morales, for allowing me a chance to participate in care of Ms. Abarca. Please call for questions. MD PATO Magdaleno/PAOLO /[id number]
[2019-03-26] MEDS ORDERED: PANTOPRAZOLE 40 MG 10ML VIAL IV STA (23:06)
[2019-03-26] MEDS: PANTOPRAZOLE 40 MG 10ML VIAL IV SCH (23:15)
--- NOTE | 2019-03-26 23:41 | NUR ---
Per Dr. Ruffin, performed rectal exam. No fecal impaction noted. Received orders from MD for suppository.
[2019-03-26] MEDS ORDERED: BISACODYL 10 MG SUPP PR ONE (23:45)
[2019-03-27] VITALS (8 sets, daily range): BP systolic 101–160; BP diastolic 60–70
[2019-03-27] MEDS: ONDANSETRON HCL INJ 2MG/ML 2ML 2 MG/ML VIAL IV SCH ×4 (00:09→18:15)
[2019-03-27] MEDS: BALSAM PERU/CASTOR OIL 60 GM OINT...G. TP SCH (00:09)
--- NOTE | 2019-03-27 00:42 | Consultation ---
DATE OF CONSULTATION: 03/26/2019 REQUESTING PHYSICIAN: John Morales MD. CONSULTING PHYSICIAN: Priti Oneill, Hematology-Oncology Service. REASON FOR CONSULTATION: Evaluation and management of patient with retroperitoneal mass. HISTORY OF PRESENTING ILLNESS: Ms. 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 She underwent workup including CT scan of the abdomen and pelvis revealing a large retroperitoneal mass measuring into 10 cm with gentle hypoattenuation consistent with necrosis. CT also demonstrated sliding hiatal hernia as well as 1.3 cm hyperdense lesion in the liver. Hematology-Oncology has been consulted to assist with the management. Presently, the patient is lying comfortably, not in acute distress. However, on supplemental oxygen. Two daughters are at bedside. There is no reported history of malignancy. However, she has been losing weight for the last several months. PAST MEDICAL HISTORY: 1. GERD. 2. Hypothyroidism. PAST SURGICAL HISTORY: None. FAMILY HISTORY: Positive for hypertension and diabetes. SOCIAL HISTORY: Denies history of smoking, alcohol use, or illicit drug use. She lives with her daughter in [place]. REVIEW OF SYSTEMS: A 14-point review of systems is negative except as mentioned per history of presenting illness. PHYSICAL EXAMINATION: VITAL SIGNS: Reviewed as per electronic medical record. HEENT: PERRLA. Extraocular movement intact. Head is atraumatic and normocephalic. NECK: Supple. CV: S1 and S2 audible. RESPIRATORY: Decreased bilateral air entry. ABDOMEN: Soft. Positive bowel sounds. EXTREMITIES: Negative edema. NEURO: The patient is alert and awake. LABORATORY DATA: Reviewed as per electronic medical record. ASSESSMENT AND PLAN: Ms. Abarca is a very pleasant 88-year-old female with known history of gastroesophageal reflux disease and hypothyroidism, presents to the emergency department due to abdominal pain and not feeling well. She also had presyncopal episode and dizziness. In the emergency department, she underwent CT scan of the retroperitoneal mass into 10 cm in size, suspected of malignancy, specifically lymphoma. Hematology-Oncology has been consulted to assist with the management. I have reviewed the records and discussed at length with the patient and daughter about her current disease and importance of further workup. Overall, the patient is nonambulatory, hardly move out of bed to go to commode. Overall, recommendation would be to have supportive care. After discussion with the patient, daughter and family member over the phone, family would like to know the diagnosis and would like to have a biopsy. Overall they are inclined towards not getting any treatment. After discussion, it has been decided to proceed forward with a biopsy of the retroperitoneal mass. I will request Interventional Radiology consultation for the needle biopsy. Presently, the patient also have anemia, which appear to be normocytic normochromic. I will get baseline workup, closely monitor. Platelet counts are in noncritical range, so no immediate intervention needed. Thank you for the consult. I will continue to be available. Please call with questions. MD ERIKA Bob/MODL /[id number]
[2019-03-27] MEDS: ALBUTEROL/IPRATROPIUM 3 ML NEB NEB SCH ×5 (03:43→22:11)
[2019-03-27 05:55] LABS: BASOPHILS % 0.1 % (0.0-1.0); HEMATOCRIT 27.5 % (34.2-44.1); HEMOGLOBIN 9.1 g/dL (12.0-16.0); LYMPHOCYTES # (AUTO) 1.4 (1.0-3.2); LYMPHOCYTES % 6.7 % (18.0-39.1); MEAN CORPUSCULAR HEMOGLOBIN 29.2 pg (28-32); MEAN CORPUSCULAR HGB CONC 33.1 g/dL (31-35); MEAN CORPUSCULAR VOLUME 88.1 fL (81-99); MONOCYTES # (AUTO) 1.7 (0.2-0.8); MONOCYTES % 8.2 % (4.4-11.3); NEUTROPHILS # (AUTO) 17.5 (2.1-6.9); NEUTROPHILS % 84.4 % (38.7-80.0); PLATELET COUNT 367 x10e3/uL (140-360); RED BLOOD COUNT 3.12 x10e6/uL (3.6-5.1); RED CELL DISTRIBUTION WIDTH 13.7 % (11.7-14.4)
[2019-03-27] MEDS: LEVOTHYROXINE SODIUM 75 MCG TAB PO SCH (06:19)
[2019-03-27 06:33] LABS: ALANINE AMINOTRANSFERASE 20 IU/L (0-55); ALBUMIN 2.6 g/dL (3.5-5.0); ALBUMIN/GLOBULIN RATIO 0.9 (0.8-2.0); ALKALINE PHOSPHATASE 63 IU/L (40-150); AMYLASE 52 U/L (25-125); ANION GAP 14.7 mmol/L (8-16); CALCIUM 9.1 mg/dL (8.4-10.2); CARBON DIOXIDE 26 mmol/L (22-29); CHLORIDE 99 mmol/L (98-107); CREATININE, SERUM 0.82 mg/dL (0.57-1.11); EST GLOMERULAR FILTRATION RATE > 60 ML/MIN (60-); GLUCOSE 111 mg/dL (74-118); LIPASE 5 U/L (8-78); POTASSIUM 4.7 mmol/L (3.5-5.1); SODIUM 135 mmol/L (136-145)
[2019-03-27 06:46] LABS: BUN/CREATININE RATIO 45 (6-25)
[2019-03-27 06:54] LABS: BLOOD UREA NITROGEN 37 mg/dL (7-26)
--- NOTE | 2019-03-27 07:08 | NUR ---
Gave bedside report to day nurse. Patient resting in bed, no s/s of distress or c/o pain at this time. All safety measures in place. Family at bedside.
[2019-03-27] MEDS ORDERED: SODIUM CHLORIDE 0.9% 250ML 250 ML ONE (08:37)
[2019-03-27] MEDS: [UNRECOGNIZED DRUG - OTHER] PO SCH (09:00)
[2019-03-27] MEDS ORDERED: ERGOCALCIFEROL 50,000 UNIT CAP PO SCH (09:00)
[2019-03-27] MEDS: ARGININE PO SCH (09:00)
[2019-03-27] MEDS: PANTOPRAZOLE 40 MG 10ML VIAL IV SCH ×2 (09:03→21:57)
[2019-03-27] MEDS: CEFTRIAXONE SOD 1 GM/NS 50 ML 50 ML IV SCH (09:03)
[2019-03-27] MEDS: DOCUSATE SODIUM 100 MG CAP PO SCH ×2 (09:04→17:00)
[2019-03-27] MEDS: ENOXAPARIN SOD INJ 40 MG/0.4 ML SYR SC SCH (09:04)
[2019-03-27] MEDS: MULTIVITAMINS/MINERALS TAB PO SCH (09:04)
[2019-03-27 10:45] LABS: BAND NEUTROPHILS % (MANUAL) 6 %; LYMPHOCYTES % (MANUAL) 6 % (19-48); MONOCYTES % (MANUAL) 8 % (3.4-9.0)
[2019-03-27 10:46] LABS: NEUTROPHILS % (MANUAL) 80 % (40-74); PLATELET ESTIMATE SLIGHTLY INCREASED; PLATELET MORPHOLOGY COMMENT NORMAL; RBC MORPHOLOGY COMMENT NORMAL
[2019-03-27] MEDS ORDERED: CEPACOL SORE THROAT LOZENGES PO PRN (11:30)
[2019-03-27] MEDS ORDERED: CHLORASEPTIC SPRAY 177 ML BTL MM PRN (11:30)
--- NOTE | 2019-03-27 11:47 | NUR ---
Patient presenting with nausea, no vomiting at this time, call light within reach, will monitor.
--- NOTE | 2019-03-27 13:20 | NUR ---
Rounds by Dr. Morales and orders for PPN for patient , form completed and sent to pharmacy and pediatric ophthalmologist to complete diet recommendation
--- NOTE | 2019-03-27 13:52 | Diagnostic Imaging Report ---
EXAM: Abdomen Radiograph 1 View(s) INDICATION: ^Abdominal pain COMPARISON: CT 03/26/19 FINDINGS: No abnormalities in the lower chest. No lines or tubes. Dilated loops of small bowel could be due to ileus. No abnormal abdominal calcifications.. No abnormal soft tissue masses. No pneumoperitoneum. Status post right hip replacement. Marked degenerative changes are seen in the left hip joint. IMPRESSION: Dilated loops of small bowel could be due to ileus. Recommend follow-up KUB to assess resolution and exclude obstruction. Signed by: Juan Pablo Appiah MD on 03/27/2019 10:01 AM
--- NOTE | 2019-03-27 15:25 | NUR ---
Rounds by Dr. Morales, reported results of 2 view abd and orders to consult general surgeon Dr. Patino has been consulted.
[2019-03-27] MEDS: PROMETHAZINE 12.5MG/ NACL 0.9% 12.5 MG/50 ML BAG IV PRN ×2 (15:30→19:49)
--- NOTE | 2019-03-27 15:35 | NUR ---
Rounds by Dr. Rose and orders for [facility] stat
--- NOTE | 2019-03-27 15:55 | Progress Note ---
DATE: 03/27/2019 Medicine Progress Note SUBJECTIVE: The patient is at bedside. She is still very nauseous despite having Zofran. I did add Phenergan. I did speak to the entire family at bedside with the patient present including the medical [id number], Dileep. She is going to provide appropriate documentation placed in the chart. She is still not eating much, very cachectic, has lost weight for significant number of weeks now. I will describe further down in assessment and plan. LABORATORY FINDINGS: Show white count still elevated at 20.7, hemoglobin 9.1, hematocrit 27.5, platelets of 367, and coagulations reviewed stable. Chemistry; sodium 135, potassium 4.7, chloride 99, bicarb 26, anion gap of 14, BUN is 37, creatinine is 0.82, calcium is 9.1. LFTs within normal range. Albumin is 2.6. MICROBIOLOGY: Urine cultures are negative. IMAGING DATA: Carotid ultrasound pending. Abdominal x-ray pending. CT chest PE protocol showed no evidence of any pulmonary embolism. There is a dilated esophagus with dependent fluid in the distal esophagus, which terminates in a large hiatal hernia. Given this finding, scattered tree and bud nodularity most notable at the dependent right lower lobe is likely related to aspiration. Hyperinflated lungs seen. PHYSICAL EXAMINATION: VITAL SIGNS: Temperature is 96.9, pulse 88, respiratory rate is 18, blood pressure is 141/65, pulse ox 98%. She is on 3 L nasal cannula. GENERAL: Not in acute distress. She is very cachectic on examination. HEENT: Head; normocephalic, atraumatic. Eyes; pupils are equal, round, and reactive to the light bilaterally. Extraocular movements are intact bilaterally. Throat; no evidence of erythema or exudates in the posterior pharynx. Has poor dentition. NECK: Supple. Good range of motion. PULMONARY: Clear to auscultation bilaterally. No wheezing, no rales, no rhonchi, no crackles appreciated. CARDIOVASCULAR: Positive S1 and S2. No murmurs, rubs, or gallops appreciated. ABDOMEN: Soft, nondistended, and nontender to palpation. Bowel sounds present. MUSCULOSKELETAL: Strength is 5/5 throughout. No evidence of any muscle deficits on examination. No weakness appreciated. NEUROLOGIC: Cranial nerves II through XII grossly intact. No evidence of any neurological deficits on exam. SKIN: Intact. Warm to touch. Good cap refill. PSYCHIATRIC: Normal affect and mood. EXTREMITIES: No edema. Good range of motion throughout. IMPRESSION: 1. Acute bronchitis with underlying emphysema-CT of the chest was found to be negative for any pulmonary embolism that shows a large hiatal hernia with a dilated esophagus, which GI is following. Continue with antibiotics neb treatments. White count is still elevated despite treatment. We will repeat labs in the morning. 2. 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 Family still is thinking about a possible biopsy to determine what the underlying diagnosis is. I discussed with them that if you guys are going to go off against chemotherapy, it is best maybe not to know what the diagnosis is. I will leave that decision up to the family, which I spoke with them at bedside today. We will follow with Hematology-Oncology. 3. Severe protein-calorie malnutrition likely secondary to underlying malignancy. I will go ahead and start her on TPN for nutrition. Stop IV fluids. 4. Syncopal episode, likely vasovagal in nature from dehydration-carotid ultrasound is pending. Follow Cardiology recommendations. 5. Shortness of breath secondary to emphysema-CT of the chest was found to be negative on neb treatments, antibiotics. Pulmonary is following. 6. PT/OT evaluation and treat. 7. Nutrition-start on IV PPN. 8. Lovenox for DVT prophylaxis. I had a long discussion with the family and the patient at bedside including the medical [id number], Dileep at bedside. I discussed overall findings on imaging, lab findings as well as overall impression of mother. The patient is very cachectic and has lost significant amount of weight over the last several months. She has been having difficulty swallowing as well and stating that she is always full. They are aware of a hiatal hernia in the past and of note, I did mention that to them on this admission as well. They are aware of the retroperitoneal mass that was discussed with them about yesterday. They are really considering possibly hospice as they know that their her mom does not want to go through all this treatment. Of note, her overall performance status is significantly poor. I discussed this with the patient as well and she is thinking that maybe chemotherapy is not the best option for her. At this time, they are going to make a decision as a family about biopsy and see if this would be of any hope and help them with the determination. Otherwise, they will let me know tomorrow and if they want to go ahead and pursue a biopsy of the retroperitoneal mass, we will go ahead and pursue that on Friday with Interventional Radiology. Overall, if the family does not want chemotherapy, I am not sure exactly if this will change the plan of care and her overall status considering her performance status is very poor. I spent significant period of time talking to the family at bedside using the nurse present throughout the entire conversation and they verbalized understanding and agrees to plan of care. MD KEMI Jacobson/MODL /[id number]
[2019-03-27 16:08] LABS: ABG HCO3 24 mmol/L (23-28); ABG PCO2 37 mmHg (41-51); ABG PH 7.42 (7.31-7.41); ABG PO2 127 mmHg (80-105)
--- NOTE | 2019-03-27 16:13 | NUR ---
Pulmonary Medicine DATE 03/27/2019 SUBJECTIVE: MILD SOB at baseline still 3 l/MIN OXYGEN by nasal canula she ate, then had emesis patient very weak REVIEW OF SYSTEMS: no headaches, no chest pain OBJECTIVE: VITAL SIGNS: vital signs noted reviewed per the chart record. GENERAL: NAD, very weak. In bed HEENT: Normocephalic and atraumatic. NECK: Supple. Throat midline. LUNGS: Bilateral air entry, decreased effort, decreased air entry heard CARDIOVASCULAR: S1, S2. No murmurs, rubs, or gallops. ABDOMEN: Soft, nontender. EXTREMITIES: No clubbing. No cyanosis. 1+ edema INTEGUMENT: No rash or purpura. LABORATORY DATA: 21 wbc, 28 hct, plt 367. cr 0.82, hco3 26. IMPRESSION AND PLAN: 1. Debility/weakness. Reportedly with respiratory limitation in the past, although not now. Weakness is predominant now. 2. Chronic asthma. 3. Allergies. 4. Gastroesophageal reflux disease. 5. Moderate protein-calorie malnutrition. 6. Admitted with syncope. 7. Large retroperitoneal mass 10 cm, 1.3 cm liver lesion. continue nebulized treatments. Consider steroids if needed. Follow up IgE level. Continue montelukast. GERD precautions to be optimized especially with her hiatal hernia. very advanced condition, poor prognosis Thank you very much Dr. Morales for allowing me a chance to participate in care of Ms. Abarca. Please call for questions.
--- NOTE | 2019-03-27 17:41 | Consultation ---
DATE OF CONSULTATION: 03/26/2019 Urology Consultation Consultation called by Dr. Morales. CHIEF UROLOGIC COMPLAINT AND REASON FOR CONSULTATION: Urinary retention. HISTORY OF PRESENT ILLNESS: Ms. Abarca is an 88-year-old female admitted to the hospital with a pelvic mass, found to be in urinary retention. A catheter was placed. There was no amount recorded. PAST MEDICAL HISTORY: COPD, hysterectomy, hypothyroidism, right total hip replacement. MEDICATIONS: Please see MAR. ALLERGIES: NKDA. SOCIAL HISTORY: Denied smoking or drinking. FAMILY HISTORY: Denied urologic stones or malignancies. REVIEW OF SYSTEMS: Noncontributory other than problems mentioned above for 12-organ systems. PHYSICAL EXAMINATION: GENERAL: Elderly female, in no acute distress, currently afebrile. VITAL SIGNS: Stable vital signs. HEENT: Sclerae are anicteric. NECK: Supple. BACK: Without costovertebral angle tenderness bilaterally. ABDOMEN: Soft. It is nontender. It is nondistended. No palpable mass. No palpable hernias. No palpable adenopathy. : Normal female genitalia. Childers catheter draining clear urine. EXTREMITIES: No edema. Moves all four extremities. NEUROLOGIC: Alert. Normal speech. SKIN: Dry. Normal color. PERTINENT LABORATORY DATA: CT scan revealing a 10 cm right retroperitoneal mass 1.3 cm liver mass. Hemoglobin 10, hematocrit 31, platelet count 419,000. White count 27,000. Sodium 134, potassium 4.7, chloride 98, bicarb 27, BUN 24, creatinine 0.78, glucose 117. Urinalysis 0-5 whites, 0-5 reds. IMPRESSION: 1. Urinary retention. 2. Anemia. 3. Leukocytosis. 4. Hyponatremia. 5. Large retroperitoneal mass. 6. Liver mass. PLAN: For mass, hematology workup. Heme and lytes per primary team. For the urinary retention, would continue the Childers catheter and perform outpatient urodynamics, this could be could pelvic nerve compression or mass effect. Thank you for allowing me to participate in the care of your patient. We will be happy to follow along with you. MD SHANEAK Lopez/MODL /[id number] cc: John Morales MD
--- NOTE | 2019-03-27 19:14 | NUR ---
Patient alert and responsive, report given to on coming nurse and rounds completed. Patient stable, call light within reach, Dr. Patino called back and was notified of consult.
[2019-03-27] MEDS: MONTELUKAST SODIUM 10 MG TAB PO SCH (21:57)
[2019-03-27] MEDS: PERIPHERAL TPN FORMULA 1 BAG IV SCH (22:44)
[2019-03-28] VITALS (7 sets, daily range): BP systolic 123–145; BP diastolic 69–79
[2019-03-28] MEDS: ONDANSETRON HCL INJ 2MG/ML 2ML 2 MG/ML VIAL IV SCH ×5 (00:16→23:28)
[2019-03-28] MEDS: BALSAM PERU/CASTOR OIL 60 GM OINT...G. TP SCH (00:17)
[2019-03-28] MEDS ORDERED: METOCLOPRAMIDE HCL 10 MG/2ML VIAL IV ONE (00:30)
[2019-03-28] MEDS ORDERED: SOD PHOSPHATE/SOD BIPHOSPHATE ENEMA 132 ML BTL PR ONE (00:45)
--- NOTE | 2019-03-28 01:36 | NUR ---
Administered fleet enema per Dr. Alise Ruffin. Minimal amount of brown liquid stool noted. Patient and family requested diaper, stating that she did not feel she could get up and use the bedside commode. Assessed skin integrity and performed wound care on existing stage 2 sacral wound. All safety measures in place. Family at bedside. Will continue to monitor.
[2019-03-28] MEDS: ALBUTEROL/IPRATROPIUM 3 ML NEB NEB SCH ×6 (02:11→23:10)
[2019-03-28] MEDS: LEVOTHYROXINE SODIUM 75 MCG TAB PO SCH (06:35)
[2019-03-28] MEDS: METOCLOPRAMIDE HCL 10 MG/2ML VIAL IV SCH ×3 (06:35→17:58)
--- NOTE | 2019-03-28 07:04 | NUR ---
Gave bedside report to oncoming nurse. Patient resting in bed, no s/s of distress or c/o pain at this time. All safety measures in place. Family at bedside.
--- NOTE | 2019-03-28 08:35 | Diagnostic Imaging Report ---
EXAM: Abdomen Radiograph 1 View INDICATION: Ileus. COMPARISON: KUB 03/27/2019. FINDINGS: There is increasing dilation of small bowel loops, measuring up to 4.7 cm. Some air seen within the colon, which is relatively decompressed. There is no evidence of free intraperitoneal air. IMPRESSION: Increasing dilation of small bowel loops, which may reflect partial small bowel obstruction or ileus. Signed by: Dr. Leandro Brown MD on 03/28/2019 8:31 AM
[2019-03-28] MEDS: [UNRECOGNIZED DRUG - OTHER] PO SCH (09:00)
[2019-03-28] MEDS: ARGININE PO SCH (09:00)
[2019-03-28] MEDS: PANTOPRAZOLE 40 MG 10ML VIAL IV SCH ×2 (09:23→21:00)
[2019-03-28] MEDS: DOCUSATE SODIUM 100 MG CAP PO SCH ×2 (09:24→16:43)
[2019-03-28] MEDS: CEFTRIAXONE SOD 1 GM/NS 50 ML 50 ML IV SCH (09:24)
[2019-03-28] MEDS: ENOXAPARIN SOD INJ 40 MG/0.4 ML SYR SC SCH (09:24)
[2019-03-28] MEDS: MULTIVITAMINS/MINERALS TAB PO SCH (09:24)
--- NOTE | 2019-03-28 09:43 | NUR ---
aware of KUB results
--- NOTE | 2019-03-28 10:14 | Consultation ---
DATE OF CONSULTATION: 03/28/2019 CHIEF COMPLAINT: Nausea and abdominal pain. HISTORY OF PRESENT ILLNESS: The patient is an 88-year-old female, admitted for dizziness with epigastric abdominal pain with nausea for several days. No actual vomiting. She also had been constipated and obstipated. PAST MEDICAL HISTORY: Significant for hypothyroidism, GERD. PAST SURGICAL HISTORY: Positive for tubal ligation and bladder suspension. ALLERGIES: NO DRUG ALLERGIES. SOCIAL HABITS: No smoking or alcohol history. REVIEW OF SYSTEMS: No chest pain. Mild shortness of breath. No cough. PHYSICAL EXAMINATION: VITAL SIGNS: Stable, afebrile. GENERAL: The patient is awake, alert, and nzyp-ip-elohuyqd discomfort. HEENT: Sclerae are nonicteric. NECK: Supple. LUNGS: Clear. HEART: Regular rate and rhythm. ABDOMEN: Moderately distended with some guarding in the periumbilical region without rebound. EXTREMITIES: No cyanosis or edema. LABORATORY DATA: The patient's white cell count is 23,000 with hemoglobin of 9, platelet count of 367, and creatinine of 0.8. Liver function tests within normal limits. The CT of the abdomen showed large retroperitoneal mass 10 x 10 cm in the central region with necrosis concerning for lymphoma. Abdominal x-ray has shown dilation of small bowel loops, reflecting partial small-bowel obstruction versus ileus. ASSESSMENT: Elderly patient with abdominal pain and nausea with a retroperitoneal mass concerning for lymphoma or sarcoma with secondary partial intestinal obstruction. PLAN: Monitor for possible progressive intestinal obstruction, which may need NG tube decompression. We will follow the patient with serial abdominal exam and x-ray. Wisam Patino MD DNMariola/MODMariola /[id number]
[2019-03-28] MEDS ORDERED: CHLORASEPTIC SPRAY 177 ML BTL MM PRN (15:00)
--- NOTE | 2019-03-28 15:30 | Progress Note ---
DATE: 03/28/2019 Medicine Progress Note SUBJECTIVE: The patient is still having some nausea and vomiting. Imaging studies consistent with a small bowel obstruction, partially an ileus. General Surgery was consulted and I recommend NG tube at this time. Reglan has been scheduled. Family has decided on DNR/DNI and are thinking about hospice as well. We will get palliative care to come talk with the family on tomorrow. PHYSICAL EXAMINATION: VITAL SIGNS: Temperature is 96.4, pulse 100, respiratory rate is 16, blood pressure is 145/74, and pulse ox 100% on 3 liters nasal cannula. GENERAL: No acute distress. She is alert, awake, and oriented x3. Cooperative on examination. HEENT: Head, normocephalic and atraumatic. Eyes, pupils are equal, round, and reactive to the light bilaterally. Extraocular movements are intact bilaterally. Throat, no evidence of erythema or exudates in the posterior pharynx. Has poor dentition. NECK: Supple. Good range of motion. PULMONARY: Clear to auscultation bilaterally. No wheezing, rales, or rhonchi. No crackles appreciated. CARDIOVASCULAR: Positive S1 and S2. No murmurs, rubs, or gallops. ABDOMEN: Distended. Nontender to palpation. Has nausea on examination. MUSCULOSKELETAL: Strength is 5/5 throughout. No evidence of any muscle deficits on examination. No weakness appreciated. NEUROLOGIC: Cranial nerves II through XII grossly intact. No evidence of any neurological deficits on exam. SKIN: Intact. Warm to touch. Good cap refill. PSYCHIATRIC: Normal affect and mood. EXTREMITIES: No edema. Good range of motion throughout. LABORATORY FINDINGS: CBC was not collected today. Chemistry; sodium 135, potassium 4.7, chloride 99, bicarb 26, anion gap of 14, BUN is 37, creatinine is 0.82, and glucose is 111. LFTs within normal range. Lipase is 5. Microbiology, none. IMAGING STUDIES: KUB from this morning shows an increased dilatation of the small bowel loops, which may reflect partial small bowel obstruction or ileus. IMPRESSION: 1. Acute bronchitis with underlying emphysema-CT scan of the chest was found to be negative for any pulmonary embolism that shows a large hiatal hernia with dilated esophagus, which GI is following. Continue with neb treatments, antibiotics. White count was elevated yesterday. We will get repeat labs in the morning. 2. 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 At this time, they do not want any biopsy of the mass. Of note, they actually want do not resuscitate/do not intubate, which will be placed in the computer. Continue to follow with Hematology/Oncology recommendation. 3. Severe protein calorie malnutrition-concerning for underlying malignancy-I will continue with partial parenteral nutrition for now daily. Get repeat labs. 4. Syncope, likely vasovagal in nature from dehydration-Cardiology following. Carotid ultrasound pending. 5. Shortness of breath, likely secondary to underlying emphysema-CT of the chest was found to be negative. Continue with neb treatments, antibiotics. Pulmonary is following. 6. Physical Therapy and Occupational Therapy evaluate and treat. 7. Nutrition status. Continue with intravenous partial parenteral nutrition. 8. Code status: Do not resuscitate/do not intubate, now just change in which the family was present including the patient and the medical [id number], Dileep at bedside. 9. Lovenox for deep vein thrombosis prophylaxis. 10. I had a long discussion with the family at bedside including the Dileep CAMARA as well as the patient at bedside and they voiced to me that they want to be do not resuscitate/do not intubate. The order has been placed for do not resuscitate/do not intubate. They are thinking about hospice as an option. I will go ahead and send a palliative care team to come talk with the family on tomorrow. Of note, at this time, General Surgery did not think that she needs nasogastric tube at this moment for decompression for small bowel obstruction, so we will continue to monitor and follow recommendations by General Surgery. I answered all their questions at bedside. I reviewed the labs and imaging studies with the family. They verbalized understanding and agreed to plan of care. The patient will now be do not resuscitate/do not intubate, which was placed in the computer. Nurse was present throughout the entire conversation, Sharmila. MD KEMI Jacobson/MODL /[id number]
--- NOTE | 2019-03-28 19:05 | NUR ---
Report given to oncoming nurse of patient's status. Resting in bed mid fowlers position. No s/s of acute distress noted. Side rails upx2, call light within reach, family at bedside.
[2019-03-28] MEDS: PERIPHERAL TPN FORMULA 1 BAG IV SCH (20:00)
--- NOTE | 2019-03-28 20:00 | NUR ---
INITIAL ASSESSMENT COMPLETE, LIN IN PLACE DRAINING, TPN INFUSING AT 80/CC HR, STAGE 2 TO SACRAL AREA, TELE ON PT, NO DISTRESS NOTED, FAMILY AT BEDSIDE, TOLD TO CALL FOR NEEDS
[2019-03-28] MEDS: MONTELUKAST SODIUM 10 MG TAB PO SCH (21:00)
[2019-03-28] MEDS: HYDROCODONE/APAP 5MG-325MG TAB PO PRN (21:00)
[2019-03-29] VITALS (8 sets, daily range): BP systolic 111–150; BP diastolic 65–90
--- NOTE | 2019-03-29 01:30 | NUR ---
Pulmonary Medicine DATE 03/28/2019 SUBJECTIVE: some SOB at rest, not worse than before enema received on TPN REVIEW OF SYSTEMS: no headaches, no chest pain OBJECTIVE: VITAL SIGNS: vital signs noted reviewed per the chart record. GENERAL: NAD, very weak. In bed HEENT: Normocephalic and atraumatic. NECK: Supple. Throat midline. LUNGS: Bilateral air entry, decreased effort, decreased air entry heard CARDIOVASCULAR: S1, S2. No murmurs, rubs, or gallops. ABDOMEN: Soft, nontender. EXTREMITIES: No clubbing. No cyanosis. 1+ edema INTEGUMENT: No rash or purpura. LABORATORY DATA: no new updates IMPRESSION AND PLAN: 1. Debility/weakness. Reportedly with respiratory limitation in the past, although not now. Weakness is predominant now. 2. Chronic asthma. 3. Allergies. 4. Gastroesophageal reflux disease. 5. Moderate protein-calorie malnutrition. 6. Admitted with syncope. 7. Large retroperitoneal mass 10 cm, 1.3 cm liver lesion. continue nebulized treatments. Consider steroids if needed. Follow up IgE level. Continue montelukast. GERD precautions to be optimized especially with her hiatal hernia. plan for IR needle biopsy of retroperitoneal mass very advanced condition, poor prognosis Thank you very much Dr. Morales for allowing me a chance to participate in care of Ms. Abarca. Please call for questions.
[2019-03-29] MEDS ORDERED: SOD PHOSPHATE/SOD BIPHOSPHATE ENEMA 132 ML BTL PR ONE (01:45)
[2019-03-29] MEDS: ALBUTEROL/IPRATROPIUM 3 ML NEB NEB SCH ×6 (03:15→22:10)
--- NOTE | 2019-03-29 05:30 | Diagnostic Imaging Report ---
EXAM: Abdomen Radiograph 1 View INDICATION: Abdominal pain, nausea, vomiting COMPARISON: Abdominal CT 03/25/2019 FINDINGS: No abnormalities in the lower chest. No lines or tubes. No disproportionate dilation of small bowel loops. Gas distention of nondilated loops of colon. No abnormal abdominal calcifications.. 12.8 cm soft tissue fullness in the lower midpelvis corresponds to soft tissue mass seen on abdominal CT 03/25/2019. No pneumoperitoneum. Partially visualized total right hip arthroplasty without evidence of acute hardware, complication. Degenerative changes in the lumbar spine, left hip, and pelvis. IMPRESSION: Nonobstructive bowel gas pattern. Large soft tissue mass in the lower midpelvis corresponds to pelvic mass seen on 03/25/2019 Signed by: Jordin Martinez DO on 03/29/2019 5:27 AM
[2019-03-29 05:42] LABS: BASOPHILS % 0.2 % (0.0-1.0); EOSINOPHILS # (AUTO) 0.3 (0.0-0.4); EOSINOPHILS % 2.8 % (0.0-6.0); HEMATOCRIT 30.1 % (34.2-44.1); HEMOGLOBIN 9.8 g/dL (12.0-16.0); LYMPHOCYTES # (AUTO) 1.6 (1.0-3.2); LYMPHOCYTES % 14.6 % (18.0-39.1); MEAN CORPUSCULAR HEMOGLOBIN 29.3 pg (28-32); MEAN CORPUSCULAR HGB CONC 32.6 g/dL (31-35); MEAN CORPUSCULAR VOLUME 89.9 fL (81-99); MONOCYTES # (AUTO) 1.5 (0.2-0.8); MONOCYTES % 14.4 % (4.4-11.3); NEUTROPHILS # (AUTO) 7.1 (2.1-6.9); NEUTROPHILS % 67.2 % (38.7-80.0); PLATELET COUNT 429 x10e3/uL (140-360); RED BLOOD COUNT 3.35 x10e6/uL (3.6-5.1); RED CELL DISTRIBUTION WIDTH 13.5 % (11.7-14.4)
[2019-03-29] MEDS: METOCLOPRAMIDE HCL 10 MG/2ML VIAL IV SCH ×4 (06:00→19:29)
[2019-03-29] MEDS: ONDANSETRON HCL INJ 2MG/ML 2ML 2 MG/ML VIAL IV SCH ×4 (06:00→23:55)
[2019-03-29] MEDS: LEVOTHYROXINE SODIUM 75 MCG TAB PO SCH (06:00)
[2019-03-29 06:09] LABS: ALANINE AMINOTRANSFERASE 18 IU/L (0-55); ALBUMIN 2.3 g/dL (3.5-5.0); ALBUMIN/GLOBULIN RATIO 0.8 (0.8-2.0); ALKALINE PHOSPHATASE 51 IU/L (40-150); ANION GAP 11.2 mmol/L (8-16); BLOOD UREA NITROGEN 32 mg/dL (7-26); BUN/CREATININE RATIO 63 (6-25); CALCIUM 8.8 mg/dL (8.4-10.2); CARBON DIOXIDE 26 mmol/L (22-29); CHLORIDE 101 mmol/L (98-107); CREATININE, SERUM 0.51 mg/dL (0.57-1.11); EST GLOMERULAR FILTRATION RATE > 60 ML/MIN (60-); GLUCOSE 102 mg/dL (74-118); MAGNESIUM 2.4 MG/DL (1.3-2.1); POTASSIUM 5.2 mmol/L (3.5-5.1); SODIUM 133 mmol/L (136-145)
--- NOTE | 2019-03-29 06:55 | NUR ---
Received patient lying in bed with eyes open. Family members at bedside. Respiration even and unlabored without SOB. Call light in reach.
--- NOTE | 2019-03-29 08:05 | NUR ---
Patient is alert and oriented, states " I do not want to do the biopsy, I just want to be comfortable". Notified IR.
[2019-03-29] MEDS: [UNRECOGNIZED DRUG - OTHER] PO SCH (08:21)
[2019-03-29] MEDS: PANTOPRAZOLE 40 MG 10ML VIAL IV SCH ×2 (08:21→20:24)
[2019-03-29] MEDS: CEFTRIAXONE SOD 1 GM/NS 50 ML 50 ML IV SCH (08:21)
[2019-03-29] MEDS: ARGININE PO SCH (08:22)
[2019-03-29] MEDS: BALSAM PERU/CASTOR OIL 60 GM OINT...G. TP SCH (08:22)
[2019-03-29] MEDS: ENOXAPARIN SOD INJ 40 MG/0.4 ML SYR SC SCH (08:22)
[2019-03-29] MEDS: MULTIVITAMINS/MINERALS TAB PO SCH (09:00)
[2019-03-29] MEDS: DOCUSATE SODIUM 100 MG CAP PO SCH ×2 (09:00→17:11)
[2019-03-29] MEDS: HYDROCODONE/APAP 5MG-325MG TAB PO PRN ×2 (11:32→14:29)
[2019-03-29] MEDS ORDERED: BISACODYL 10 MG SUPP PR PRN (11:45)
--- NOTE | 2019-03-29 11:45 | NUR ---
PT FAMILY SIGNED CHOICE FOR [facility] BUT WILL NOT DISCHARGE UNTIL SBO IS RESOLVED. FILED IN CHART.
[2019-03-29] MEDS: MORPHINE SULFATE 2 MG/ML SYR 1ML IV PRN ×2 (12:05→17:02)
--- NOTE | 2019-03-29 12:11 | NUR ---
CALLED [facility] WAS BOUGHT OUT BY [facility] CALLED REP SHE WILL COME TODAY TO SEE PATIENT.
[2019-03-29] MEDS ORDERED: BISACODYL 10 MG SUPP PR ONE (12:30)
--- NOTE | 2019-03-29 13:15 | Progress Note ---
DATE: 03/29/2019 Medicine Progress Note SUBJECTIVE: The patient is still having some nausea and vomiting. Her abdomen is still distended, but has minimal pain. Dulcolax suppository has been ordered for today. Family spoke with palliative care as well as Case Management about hospice and they have already picked a company called [facility]. The patient still has not had any p.o. intake. She is on IV PPN. PHYSICAL EXAMINATION: VITAL SIGNS: Temperature 96.6, pulse 92, respiratory rate is 18, blood pressure 147/68, pulse ox 98% on 3 L nasal cannula. GENERAL: Not in acute distress. Alert and oriented x3. Cooperative on examination. HEENT: Head; normocephalic, atraumatic. Eyes; pupils are equal, round, and reactive to the light bilaterally. Extraocular movements are intact bilaterally. Throat; no evidence of erythema or exudates in the posterior pharynx. Has poor dentition. NECK: Supple. Good range of motion. PULMONARY: Clear to auscultation bilaterally. No wheezing, no rales, no rhonchi, no crackles appreciated. CARDIOVASCULAR: Positive S1 and S2. No murmurs, rubs, or gallops appreciated. ABDOMEN: It was distended, nontender to palpation. Bowel sounds were present and very tympanic on exam. MUSCULOSKELETAL: Strength is 5/5 throughout. SKIN: Intact. Warm to touch. Good cap refill. PSYCHIATRIC: Normal affect and mood. EXTREMITIES: No edema. Good range of motion throughout. LABORATORY FINDINGS: Show white count 10.5, hemoglobin 9.8, hematocrit 30, platelets of 429. Coagulation; PT 13, INR 1, PTT 26. Chemistry; sodium 133, potassium 5.2, chloride 101, bicarb 26, anion gap of 11, BUN is 32, creatinine is 0.51, glucose is 102, magnesium is 2.4. LFTs within normal range. MICROBIOLOGY: Urine cultures were negative. IMAGING DATA: Abdominal x-ray shows large small tissue mass in the lower mid pelvis corresponds to pelvic mass seen on 03/25/2019. IMPRESSION: 1. Acute bronchitis with underlying emphysema-CT chest was found to be negative for any pulmonary embolism, but does show a large hiatal hernia with dilated esophagus, in which Pulmonary is following. Continue with neb treatments and antibiotics. White count has improved tremendously. Get a.m. labs. 2. 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 Family does not want any intervention or biopsy, which has not been counseled. 3. Severe protein calorie malnutrition, likely secondary to underlying malignancy-continue with IV PPN for now. She still has nausea and vomiting. 4. Syncope, likely vasovagal in nature, which Cardiology is following. 5. Shortness of breath-likely secondary to emphysema. Pulmonary is following. She is doing much better now. 6. Physical Therapy and Occupation Therapy evaluate and treat. 7. Nutrition status-continue with IV PPN. 8. Small bowel obstruction versus ileus-her abdomen was tympanic, nontender to palpation, though KUB on this last one this morning does not show any bowel obstruction-General Surgery is following. We will add Dulcolax suppository to stimulate the gut. She is on IV Reglan as well. 9. Lovenox for DVT prophylaxis. 10. Family has decided on hospice care. Of note, they have choose a company called [facility]. Case Management and palliative care have spoken to the family as well. They are waiting for equipment to be arranged at home. Due to her bowel obstruction and inability to eat, I would like to wait for the bowel obstruction to resolve, noted for her to have some sort of nutrition upon discharge. Once her obstruction resolves and she is able to tolerate diet well, my goal is for us to transition her to home with hospice as per family's wishes. Otherwise, we will continue with same plan of care and monitor very closely. MD KEMI Jacobson/PAOLO /[id number]
--- NOTE | 2019-03-29 17:58 | NUR ---
Nutrition Intervention Note RD Recommendation(s) for Physician: The patient meets criteria for unspecified SEVERE protein-calorie malnutrition - Recommend increasing PPN rate to 95 mL/hr and 50 gm/day lipids as appropriate to better meet nutrition needs (would provide 1226 kcal, 97 g protein) -If central line can be placed, recommend TPN @ goal rate of 75 mL/hr and 25 gm/day lipids (would provide 1503 kcal, 90 g protein) -Monitor triglycerides Plan of Care: RD following, monitoring for tolerance and adequacy Nutrition reason for involvement: follow up and consult for PPN RD Assessment (03/29/19) Pt was found to have a small bowel obstruction and PPN was started. PPN is currently running at 80 mL/hr with 25 gm/day lipids. Pt also has a cardiac diet order but is not able to tolerate diet due to N/V. Per MD note, family had decided to proceed with hospice care. Per MD note, MD is going to wait for bowel obstruction to resolve and that pt tolerates diet before transitioning pt home with hospice. Will continue to monitor. (03/26/19) Pt is an 88 year old female admitted with syncopy. At time of visit, RN reported pt is currently NPO. Spoke to family members and pt. Pt reports she has been eating < 50% of meals for about 3 months prior to admission. Pt drinks protein nutrition supplement drinks at home. Pt also mentioned she used to weigh 140 lbs a couple of years ago and now weighs 98 lbs. However, pt currently has a wt of 106 lbs in chart. It is noted that pt has a stage 2 sacral pressure ulcer per wound care note. Pt reports some N/V. No chewing/swallowing issues. Will continue to monitor unless consulted sooner. Principal Problems/Diagnoses: syncopy PMH: COPD I/O: 1460/500 GI: distended abdomen Skin: stage 2 sacrum pressure ulcer Labs: (03/29/19) Na 133, K 5.2, BUN 32, Mg 2.4 Meds: (03/26/19) zofran, levothyroxine, colace, protonix, multivitamin with minerals, ergocalciferol Ht: 68 inches Wt: (03/26) 106 lbs (pt has various weights in chart for this admission ranging from 98-111 lbs) BMI: 16.1 kg/m2 IBW: 140 lbs Malnutrition Evaluation (03/29/19) The patient meets criteria for unspecified SEVERE protein-calorie malnutrition. Energy intake: <75% of estimated energy requirements for 3 months Weight loss: Pt mentioned she used to weigh 140 lbs a couple of years ago and now weighs 98 lbs. Pt has various weights in chart for this admission ranging from 98-111 lbs Fat loss and Muscle loss: Pt showed severe signs of generalized muscle and fat depletion Supporting Evidence: Fluid accumulation: unable to evaluate Functional Status: unable to evaluate Nutrition Prescription (Diet Order): PPN @ 80 mL/hr and 25 gm lipids 3x/week (provides 748 kcal, 82 g protein) Estimated Nutritional Needs: 9436-1539 calories/day (30-35 kcal/kg CBW) 72-96 g protein/day (1.5-2 g pro/kg CBW) Diet Adequacy: Not meeting calorie needs, Meeting protein needs Tolerance: Pt is not tolerating PO diet Diet Education Needs Assessment: Diet education not appropriate at this time Nutrition Care Level: moderate Nutrition Diagnosis: Severe protein kcal malnutrition related to h/o inadequate energy intake as evidenced by pt meeting < 75% of energy needs for > 1 month and severe generalized muscle and fat depletion Goal: Patient will meet 75-100% of estimated needs by follow up Progress: not progressing Interventions: PPN - Composition, Rate, Route, Collaboration with other providers Monitoring/Evaluation: -Total energy intake, Total protein intake, Formula/Solution, Weight change Signed: Naye Knowles RD, JOSE Addendum: 03/29/19 at 1806 by Naye Knowles DIET Pt is high nutrition care level
--- NOTE | 2019-03-29 19:00 | NUR ---
Report given to welder 2nd shift. Respiration even an unlabored, Childers catheter in placed, intact with yellow colored urine to drainage bag. Family members at bedside.
[2019-03-29] MEDS ORDERED: PERIPHERAL TPN FORMULA 1 BAG IV SCH (20:00)
[2019-03-29] MEDS: MONTELUKAST SODIUM 10 MG TAB PO SCH ×2 (20:24→21:00)
[2019-03-29 22:57] LABS: ALPHA-1-ANTITRYPSIN 283 mg/dL (101-187)
--- NOTE | 2019-03-29 23:07 | NUR ---
Pulmonary Medicine DATE 03/29/2019 SUBJECTIVE: 3 L/min oxygen slept better tpn at 80/hr nausea, not eating much REVIEW OF SYSTEMS: no headaches, no chest pain OBJECTIVE: VITAL SIGNS: vital signs noted reviewed per the chart record. GENERAL: NAD, very weak. In bed HEENT: Normocephalic and atraumatic. NECK: Supple. Throat midline. LUNGS: Bilateral air entry, decreased effort, decreased air entry heard CARDIOVASCULAR: S1, S2. No murmurs, rubs, or gallops. ABDOMEN: Soft, nontender. EXTREMITIES: No clubbing. No cyanosis. 1+ edema INTEGUMENT: No rash or purpura. LABORATORY DATA: no new updates IMPRESSION AND PLAN: 1. Debility/weakness. Reportedly with respiratory limitation in the past, although not now. Weakness is predominant now. 2. Chronic asthma. 3. Allergies. 4. Gastroesophageal reflux disease. 5. Moderate protein-calorie malnutrition. 6. Admitted with syncope. 7. Large retroperitoneal mass 10 cm, 1.3 cm liver lesion. continue nebulized treatments. Consider steroids if needed. Follow up IgE level. Continue montelukast. GERD precautions to be optimized especially with her hiatal hernia. deferring IR needle biopsy of retroperitoneal mass? very advanced condition, poor prognosis family to discuss with hospice tomorrow Thank you very much Dr. Morales for allowing me a chance to participate in care of Ms. Abarca. Please call for questions.
[2019-03-30] VITALS (8 sets, daily range): BP systolic 129–173; BP diastolic 74–91
[2019-03-30] MEDS: ALBUTEROL/IPRATROPIUM 3 ML NEB NEB PRN ×2 (01:10→13:20)
[2019-03-30] MEDS: METOCLOPRAMIDE HCL 10 MG/2ML VIAL IV SCH ×5 (02:52→20:58)
[2019-03-30] MEDS: ALBUTEROL/IPRATROPIUM 3 ML NEB NEB SCH ×6 (04:05→22:19)
[2019-03-30] MEDS ORDERED: SOD PHOSPHATE/SOD BIPHOSPHATE ENEMA 132 ML BTL PR ONE (05:00)
[2019-03-30 05:39] LABS: BASOPHILS % 0.3 % (0.0-1.0); EOSINOPHILS # (AUTO) 0.2 (0.0-0.4); HEMATOCRIT 34.5 % (34.2-44.1); HEMOGLOBIN 11.4 g/dL (12.0-16.0); LYMPHOCYTES # (AUTO) 1.2 (1.0-3.2); LYMPHOCYTES % 7.6 % (18.0-39.1); MEAN CORPUSCULAR HEMOGLOBIN 29.5 pg (28-32); MEAN CORPUSCULAR VOLUME 89.4 fL (81-99); MONOCYTES # (AUTO) 2.2 (0.2-0.8); MONOCYTES % 14.2 % (4.4-11.3); NEUTROPHILS # (AUTO) 11.9 (2.1-6.9); NEUTROPHILS % 75.9 % (38.7-80.0); PLATELET COUNT 567 x10e3/uL (140-360); RED BLOOD COUNT 3.86 x10e6/uL (3.6-5.1); RED CELL DISTRIBUTION WIDTH 13.3 % (11.7-14.4)
[2019-03-30 06:04] LABS: ANION GAP 10.9 mmol/L (8-16); BLOOD UREA NITROGEN 33 mg/dL (7-26); BUN/CREATININE RATIO 69 (6-25); CALCIUM 9.1 mg/dL (8.4-10.2); CARBON DIOXIDE 25 mmol/L (22-29); CHLORIDE 99 mmol/L (98-107); CREATININE, SERUM 0.48 mg/dL (0.57-1.11); EST GLOMERULAR FILTRATION RATE > 60 ML/MIN (60-); GLUCOSE 129 mg/dL (74-118); POTASSIUM 5.9 mmol/L (3.5-5.1); SODIUM 129 mmol/L (136-145)
[2019-03-30] MEDS: ONDANSETRON HCL INJ 2MG/ML 2ML 2 MG/ML VIAL IV SCH ×3 (06:18→17:56)
[2019-03-30] MEDS: LEVOTHYROXINE SODIUM 75 MCG TAB PO SCH (06:18)
--- NOTE | 2019-03-30 07:12 | NUR ---
PT AWAKE RESP EVEN AND UNLABORED AT THIS TIME. NO DISTRESS NOTED , PT ABLE TO MAKE NEEDS KNOWN, CALL LIGHT IN REACH. PT HAS FAMILY MEMBERS AT BEDSIDE.
[2019-03-30] MEDS: PANTOPRAZOLE 40 MG 10ML VIAL IV SCH ×2 (08:23→20:58)
[2019-03-30] MEDS: CEFTRIAXONE SOD 1 GM/NS 50 ML 50 ML IV SCH (08:24)
[2019-03-30] MEDS: ARGININE PO SCH (08:27)
[2019-03-30] MEDS: [UNRECOGNIZED DRUG - OTHER] PO SCH (08:27)
[2019-03-30] MEDS: ENOXAPARIN SOD INJ 40 MG/0.4 ML SYR SC SCH (08:31)
[2019-03-30] MEDS: MULTIVITAMINS/MINERALS TAB PO SCH (08:31)
[2019-03-30] MEDS: DOCUSATE SODIUM 100 MG CAP PO SCH ×2 (08:31→17:00)
--- NOTE | 2019-03-30 11:31 | Diagnostic Imaging Report ---
Exam: KUB - 2 views Indication: Ileus Comparison: KUB of 03/29/2019 Findings: Again seen are multiple dilated loops of small bowel throughout the abdomen measuring up to 5.2 cm maximum diameter. This is not significant changed compared to the prior exam of 03/29/2019. No free air. No pneumatosis. Degenerative changes of the spine and left hip joint. Status post right total hip replacement. Impression: Dilated loops of small bowel measuring up to 5.2 cm maximum diameter, compatible with ileus versus obstruction. No free air. Signed by: Vasiliy Trejo MD on 03/30/2019 11:27 AM
[2019-03-30] MEDS ORDERED: SIMETHICONE 80 MG CHEW PO PRN (12:30)
[2019-03-30] MEDS ORDERED: AMLODIPINE BESYLATE 10 MG TAB PO NR (12:45)
--- NOTE | 2019-03-30 12:48 | NUR ---
gave IMM to patient and family, explained and family signed. placed in chart, copy to family
[2019-03-30] MEDS: BALSAM PERU/CASTOR OIL 60 GM OINT...G. TP SCH (13:24)
[2019-03-30] MEDS: FUROSEMIDE INJ 10 MG/ML 4 ML VIAL IV SCH ×2 (13:24→17:56)
--- NOTE | 2019-03-30 13:34 | Progress Note ---
DATE: 03/30/2019 Medicine Progress Note SUBJECTIVE: The patient still has a small bowel obstruction seen on KUB. Her abdomen is still distended, but she is nontender on examination. We will give simethicone and some Dulcolax again to see if this will help her. She is eating some full liquid diet, but not fully. I am not sure what General Surgery wants to do for the patient. Family is now talking to the hospice company and making a final decision. We will go ahead and stop the PPN for now. PHYSICAL EXAMINATION: VITAL SIGNS: Temperature is 96.7, pulse is 117, respiratory rate is 20, blood pressure is 160/88, and pulse ox is 100% on 2 L nasal cannula. GENERAL: Not in acute distress. Alert and oriented x3. Cooperative on examination. HEENT: Head; normocephalic, atraumatic. Eyes; pupils are equal, round, and reactive to light bilaterally. Extraocular movements intact bilaterally. Throat; no evidence of erythema or exudates in the posterior pharynx. Has poor dentition. NECK: Supple. Good range of motion. PULMONARY: Clear to auscultation bilaterally. No wheezing, no rales, no rhonchi, no crackles appreciated. CARDIOVASCULAR: Positive S1 and S2. No murmurs, rubs, or gallops appreciated. ABDOMEN: She is distended and nontender to palpation. She is tympanic. Bowel sounds are present. MUSCULOSKELETAL: At baseline. SKIN: Intact. Warm to touch. Good cap refill. PSYCHIATRIC: Normal affect and mood. EXTREMITIES: No edema. Good range of motion throughout. LABORATORY FINDINGS: Show white count is 15.6, hemoglobin 11.4, hematocrit is 34.5, and platelets of 567. Chemistry; sodium is 129, potassium 5.9, chloride 99, bicarb 25, anion gap of 10, BUN is 33, creatinine is 0.4, glucose is 129, and calcium is 9.1. Urinalysis negative. MICROBIOLOGY: Urine cultures are negative. IMAGING STUDIES: KUB this morning showed dilated loops of small bowel measuring up to 5.2 cm maximum diameter. Compatible with ileus versus obstruction. No free air appreciated. IMPRESSION: 1. Acute bronchitis with underlying emphysema-CT chest was found to be negative for any pulmonary embolism. She does have a large hiatal hernia with dilated esophagus. Pulmonary is following. She is on neb treatments and antibiotics. White count actually went up today. We will get morning labs. 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 Family decided against any biopsy, which was canceled. 2. Severe protein-calorie malnutrition secondary to underlying malignancy-discontinue IV PPN due to hyperkalemia. She is on full liquid diet per General surgery. 3. Syncope, likely vasovagal in nature. 4. Shortness of breath secondary to emphysema. 5. Small bowel obstruction versus ileus-KUB still shows consistency of ileus and small bowel obstruction. We will give simethicone and Dulcolax to see if this will help. Follow General Surgery recommendations. She is on full liquid diet. 6. Mild hyperkalemia and hyponatremia-discontinue IV TPN. Add normal saline. Give Lasix 40 mg IV b.i.d. Potassium repeat this afternoon, a.m. labs. 7. Lovenox for deep venous thrombosis prophylaxis. 8. Family decided on hospice care. We are awaiting for final hospice arrangements. We will keep the patient overnight because I am still concerned of her hyperkalemia and her small bowel obstruction. If that all resolves by tomorrow and the patient is comfortable, and her white count is better, then the patient can be discharged. MD KEMI Jacobson/MODL /[id number]
[2019-03-30] MEDS: SODIUM CHLORIDE 0.9% 1000ML 1,000 ML IV SCH (15:16)
--- NOTE | 2019-03-30 15:20 | NUR ---
PT RECEIVED SUPPOSITORY, IV LASIX, 10 MG NORVASC FOR B/P 168/[address] PO[address] SAUCEDO.
--- NOTE | 2019-03-30 15:30 | NUR ---
PT HAD MEDIUM BM.
--- NOTE | 2019-03-30 19:28 | NUR ---
REPORT GIVEN TO ONCOMING NURSE FOR CONTINUED CARE. PT STABLE.
--- NOTE | 2019-03-30 20:30 | NUR ---
Daughters at bedside. Patient is awake, alert and able to make needs known. Patient instructed to call for assistance as needed and to turn q2 hours. She verbalized understanding. Call adams within reach
[2019-03-30] MEDS: MONTELUKAST SODIUM 10 MG TAB PO SCH (20:58)
--- NOTE | 2019-03-30 21:44 | NUR ---
Pulmonary Medicine DATE 03/30/2019 SUBJECTIVE: 4 L/min oxygen more dyspnea today some sore throat tpn ongoing REVIEW OF SYSTEMS: no headaches, no chest pain OBJECTIVE: VITAL SIGNS: vital signs noted reviewed per the chart record. GENERAL: NAD, very weak. In bed HEENT: Normocephalic and atraumatic. NECK: Supple. Throat midline. LUNGS: Bilateral air entry, decreased effort, decreased air entry heard CARDIOVASCULAR: S1, S2. No murmurs, rubs, or gallops. ABDOMEN: Soft, nontender. EXTREMITIES: No clubbing. No cyanosis. 1+ edema INTEGUMENT: No rash or purpura. LABORATORY DATA: no new updates IMPRESSION AND PLAN: 1. Debility/weakness. Reportedly with respiratory limitation in the past, although not now. Weakness is predominant now. 2. Chronic asthma. 3. Allergies. 4. Gastroesophageal reflux disease. 5. Moderate protein-calorie malnutrition. 6. Admitted with syncope. 7. Large retroperitoneal mass 10 cm, 1.3 cm liver lesion. continue nebulized treatments. Consider steroids if needed. Follow up IgE level. Continue montelukast. GERD precautions to be optimized especially with her hiatal hernia. deferred IR needle biopsy of retroperitoneal mass very advanced condition, poor prognosis family may agree to hospice , follow up Thank you very much Dr. Morales for allowing me a chance to participate in care of Ms. Abarca. Please call for questions.
[2019-03-30] MEDS: LEVALBUTEROL HCL SOLN NEBU 0.63 MG/3 ML NEB INH PRN (22:20)
[2019-03-31] MEDS: ONDANSETRON HCL INJ 2MG/ML 2ML 2 MG/ML VIAL IV SCH ×4 (00:39→17:30)
[2019-03-31] MEDS: METOCLOPRAMIDE HCL 10 MG/2ML VIAL IV SCH ×3 (02:41→15:54)
[2019-03-31] MEDS: SODIUM CHLORIDE 0.9% 1000ML 1,000 ML IV SCH (02:41)
[2019-03-31] MEDS: ALBUTEROL/IPRATROPIUM 3 ML NEB NEB SCH (02:45)
[2019-03-31] MEDS ORDERED: SOD PHOSPHATE/SOD BIPHOSPHATE ENEMA 132 ML BTL PR ONE (02:45)
--- NOTE | 2019-03-31 04:00 | NUR ---
Patient had BMx2 with + flatus after enema
[2019-03-31 04:13] VITALS: BP 153/84
[2019-03-31] MEDS: LEVOTHYROXINE SODIUM 75 MCG TAB PO SCH (05:38)
[2019-03-31 06:00] LABS: BASOPHILS # (AUTO) 0.1 (0.0-0.1); BASOPHILS % 0.5 % (0.0-1.0); EOSINOPHILS # (AUTO) 0.1 (0.0-0.4); EOSINOPHILS % 0.4 % (0.0-6.0); HEMOGLOBIN 11.1 g/dL (12.0-16.0); LYMPHOCYTES # (AUTO) 1.5 (1.0-3.2); LYMPHOCYTES % 8.3 % (18.0-39.1); MEAN CORPUSCULAR HEMOGLOBIN 29.1 pg (28-32); MEAN CORPUSCULAR HGB CONC 32.6 g/dL (31-35); MEAN CORPUSCULAR VOLUME 89.2 fL (81-99); MONOCYTES # (AUTO) 2.8 (0.2-0.8); MONOCYTES % 15.6 % (4.4-11.3); NEUTROPHILS # (AUTO) 13.1 (2.1-6.9); NEUTROPHILS % 73.4 % (38.7-80.0); PLATELET COUNT 590 x10e3/uL (140-360); RED BLOOD COUNT 3.81 x10e6/uL (3.6-5.1); RED CELL DISTRIBUTION WIDTH 13.2 % (11.7-14.4)
[2019-03-31 06:15] LABS: ANION GAP 12.9 mmol/L (8-16); BLOOD UREA NITROGEN 41 mg/dL (7-26); BUN/CREATININE RATIO 62 (6-25); CALCIUM 9.2 mg/dL (8.4-10.2); CARBON DIOXIDE 25 mmol/L (22-29); CHLORIDE 97 mmol/L (98-107); CREATININE, SERUM 0.66 mg/dL (0.57-1.11); EST GLOMERULAR FILTRATION RATE > 60 ML/MIN (60-); GLUCOSE 110 mg/dL (74-118); POTASSIUM 5.9 mmol/L (3.5-5.1); SODIUM 129 mmol/L (136-145)
--- NOTE | 2019-03-31 06:32 | Diagnostic Imaging Report ---
Exam: KUB -1 view Indication: Ileus, comparison Comparison: KUB of 03/30/2019. Findings: Multiple dilated loops of small bowel throughout the abdomen measuring up to to 4.8 cm maximum diameter, previously 5.2 cm. No evidence of free air. Degenerative changes of the spine and left hip joint. Status post right total hip replacement. Impression: Dilated loops of small bowel measuring up to 4.8 cm in maximum diameter, compatible with ileus versus obstruction. No free air. Signed by: Dr. Leandro Brown MD on 03/31/2019 6:28 AM
[2019-03-31] MEDS: LEVALBUTEROL HCL SOLN NEBU 0.63 MG/3 ML NEB INH PRN ×3 (06:48→14:20)
[2019-03-31 08:38] VITALS: BP 152/68
[2019-03-31] MEDS: [UNRECOGNIZED DRUG - OTHER] PO SCH (09:00)
[2019-03-31] MEDS: ARGININE PO SCH (09:00)
[2019-03-31] MEDS ORDERED: AMLODIPINE BESYLATE 10 MG TAB PO SCH (09:00)
[2019-03-31] MEDS: CEFTRIAXONE SOD 1 GM/NS 50 ML 50 ML IV SCH (10:00)
[2019-03-31] MEDS: PANTOPRAZOLE 40 MG 10ML VIAL IV SCH (10:00)
[2019-03-31] MEDS: DOCUSATE SODIUM 100 MG CAP PO SCH ×2 (10:00→17:30)
[2019-03-31] MEDS: BALSAM PERU/CASTOR OIL 60 GM OINT...G. TP SCH (10:00)
[2019-03-31] MEDS: MULTIVITAMINS/MINERALS TAB PO SCH (10:00)
[2019-03-31] MEDS: ENOXAPARIN SOD INJ 40 MG/0.4 ML SYR SC SCH (10:00)
[2019-03-31] MEDS ORDERED: DEXTROSE 50% SYRINGE 50 ML IV STA (11:50)
--- NOTE | 2019-03-31 11:54 | NUR ---
SPENT TIME WITH FAMILY ANSWERING ALL QUESTIONS, TALKING ABOUT PROCESSES AND LETTING THEM KNOW THAT I HAVE SPOKEN WITH THE DOCTOR ABOUT THEIR REQUEST TO RETURN HOME ON HOSPICE, LET THEM KNOW THAT THEY WILL BE ABLE TO SPEAK WITH HIM ABOUT THEIR REQUESTS.
[2019-03-31] MEDS ORDERED: FUROSEMIDE INJ 10 MG/ML 10 ML VIAL IV ONE (12:00)
[2019-03-31] MEDS ORDERED: INSULIN REGULAR, HUMAN 100 UNIT/1 ML 3ML VIAL SQ NR (12:15)
--- NOTE | 2019-03-31 12:15 | NUR ---
MD MEDINA INTO SEE PT, DISCUSSED WITH FAMILY AND PATIENT REGARDING RISK OF GOING HOME, MD MEDINA EXPLAINED RISK AND FAMILY AND PT VERBALIZED UNDERSTANDING THAT PT HAS STILL HAS SBO, ALL VERBALIZED STILL WANTING TO GO HOME WITH HOSPICE
[2019-03-31 12:25] VITALS: BP 138/68
[2019-03-31] MEDS ORDERED: FUROSEMIDE INJ 10 MG/ML 4 ML VIAL IV NR (12:30)
[2019-03-31 16:16] VITALS: BP 119/56
[2019-03-31] MEDS ORDERED: CEFDINIR300 MG PO (17:03)
[2019-03-31] MEDS ORDERED: AMLODIPINE BESY10 MG PO (17:04)
--- NOTE | 2019-03-31 17:40 | NUR ---
FAMILY MADE AWARE OF ELEVATED WBC , STILL WANTS TO GO HOME ON HOSPICE, SPOKE WITH MD MEDINA, MADE AWARE OF CURRENT POTASSIUM 5.0, ORDERS NOTED TO DC
--- NOTE | 2019-03-31 17:57 | NUR ---
Follow up note The patient meets criteria for unspecified SEVERE protein-calorie malnutrition -Recommend GI soft diet when medically appropriate -Ensure Enlive BID as tolerated Plan of Care: RD following, monitoring for tolerance and adequacy Nutrition reason for involvement: follow up RD Assessment (03/31/19) PPN was D/C. Pt stated she has only been consuming a small amount of food and is still experiencing N/V. Pt was interested in Ensure. Will provide BID. (03/29/19) Pt was found to have a small bowel obstruction and PPN was started. PPN is currently running at 80 mL/hr with 25 gm/day lipids. Pt also has a cardiac diet order but is not able to tolerate diet due to N/V. Per MD note, family had decided to proceed with hospice care. Per MD note, MD is going to wait for bowel obstruction to resolve and that pt tolerates diet before transitioning pt home with hospice. Will continue to monitor. (03/26/19) Pt is an 88 year old female admitted with syncopy. At time of visit, RN reported pt is currently NPO. Spoke to family members and pt. Pt reports she has been eating < 50% of meals for about 3 months prior to admission. Pt drinks protein nutrition supplement drinks at home. Pt also mentioned she used to weigh 140 lbs a couple of years ago and now weighs 98 lbs. However, pt currently has a wt of 106 lbs in chart. It is noted that pt has a stage 2 sacral pressure ulcer per wound care note. Pt reports some N/V. No chewing/swallowing issues. Will continue to monitor unless consulted sooner. Principal Problems/Diagnoses: syncopy PMH: COPD I/O: 1460/500 GI: distended abdomen Skin: stage 2 sacrum pressure ulcer Labs: (03/31/19) Na 129, K 5.9, BUN 41, Glu 62 (03/29/19) Na 133, K 5.2, BUN 32, Mg 2.4 Meds: metoclopramide, zofran, protonix, lovenox, colace, levothyroxine, NaCl Ht: 68 inches Wt: (03/26) 106 lbs (pt has various weights in chart for this admission ranging from 98-111 lbs) BMI: 16.1 kg/m2 IBW: 140 lbs Malnutrition Evaluation (03/29/19) The patient meets criteria for unspecified SEVERE protein-calorie malnutrition. Energy intake: <75% of estimated energy requirements for 3 months Weight loss: Pt mentioned she used to weigh 140 lbs a couple of years ago and now weighs 98 lbs. Pt has various weights in chart for this admission ranging from 98-111 lbs Fat loss and Muscle loss: Pt showed severe signs of generalized muscle and fat depletion Supporting Evidence: Fluid accumulation: unable to evaluate Functional Status: unable to evaluate Nutrition Prescription (Diet Order): Cardiac diet Estimated Nutritional Needs: 1230-7643 calories/day (30-35 kcal/kg CBW) 72-96 g protein/day (1.5-2 g pro/kg CBW) Diet Adequacy: Not meeting calorie needs, Meeting protein needs Tolerance: Pt is experiencing N/V Diet Education Needs Assessment: Diet education not appropriate at this time Nutrition Care Level: moderate Nutrition Diagnosis: Severe protein kcal malnutrition related to h/o inadequate energy intake as evidenced by pt meeting < 75% of energy needs for > 1 month and severe generalized muscle and fat depletion Goal: Patient will meet 75-100% of estimated needs by follow up Progress: not progressing Interventions: Modified diet, Commercial beverage, Recommended Modifications Monitoring/Evaluation: -Total energy intake, Total protein intake, Weight change, Liquid Supplement Signed: Naye Knowles RD, LD
--- NOTE | 2019-03-31 18:28 | NUR ---
IV REMOVED, AMBULANCE HERE TO TAKE PT HOME FOR HOSPICE, NO CHANGE IN CONDITION, FAMILY AT SIDE
--- NOTE | 2019-03-31 18:31 | NUR ---
WHEELED OFF UNIT, NO CHANGE IN CONDITION
--- NOTE | 2019-04-01 01:07 | NUR ---
Pulmonary Medicine DATE 03/31/2019 SUBJECTIVE: 4 L/min oxygen stable breathing family has now decided for hospice patient not taking in significant nutrition REVIEW OF SYSTEMS: no headaches, no chest pain OBJECTIVE: VITAL SIGNS: vital signs noted reviewed per the chart record. GENERAL: NAD, very weak. In bed HEENT: Normocephalic and atraumatic. NECK: Supple. Throat midline. LUNGS: Bilateral air entry, decreased effort, decreased air entry CARDIOVASCULAR: S1, S2. No murmurs, rubs, or gallops. ABDOMEN: Soft, nontender. EXTREMITIES: No clubbing. No cyanosis. 1+ edema INTEGUMENT: No rash or purpura. LABORATORY DATA: k 5.9, cr 0.66, wbc 17.8 IMPRESSION AND PLAN: 1. Debility/weakness. Reportedly with respiratory limitation in the past, although not now. Weakness is predominant now. 2. Chronic asthma. 3. Allergies. 4. Gastroesophageal reflux disease. 5. Moderate protein-calorie malnutrition. 6. Admitted with syncope. 7. Large retroperitoneal mass 10 cm, 1.3 cm liver lesion. 8. elevated k wean nebulized treatments. Continue montelukast. GERD precautions to be optimized especially with her hiatal hernia. deferred IR needle biopsy of retroperitoneal mass very advanced condition, poor prognosis family agrees to hospice , discharge possible today Thank you very much Dr. Morales for allowing me a chance to participate in care of Ms. Abarca. Please call for questions.
--- NOTE | 2019-04-01 17:07 | Discharge Summary ---
FINAL DISCHARGE DIAGNOSES: 1. Acute bronchitis with underlying emphysema. 2. Intra-abdominal mass, unknown etiology-family refuses any intervention instead wanted hospice care and did not want any biopsy performed. 3. Small bowel obstruction versus ileus-family did not want any further intervention. 4. Severe protein-calorie malnutrition. 5. Shortness of breath secondary to emphysema. 6. Mild hyperkalemia-resolved. 7. Hyponatremia. 8. Family decided on hospice services. 9. Leukocytosis. CONSULTANTS: We had General Surgery, GI, Hematology-Oncology, and Pulmonary. PHYSICAL EXAMINATION: VITAL SIGNS: Temperature is 96.1, pulse 105, respiratory rate 16, blood pressure 119/56, and pulse ox 100% on room air. LABORATORY FINDINGS: Show white count was 17.8, hemoglobin 11, hematocrit 34, and platelets of 590. Coagulation; PT 13, INR 1, and PTT 26. Chemistry; sodium 129, potassium was 5, chloride 97, bicarbonate 25, anion gap 12, BUN was 41, creatinine 0.66, glucose was 110, calcium was 9.5, magnesium was 2.5, AST was 36, ALT 18, and albumin was 2.3. Troponins was negative. TSH was 2.8. Lipase was 5. Urinalysis was negative. Microbiology, urine cultures were negative. IMAGING STUDIES: Chest x-ray on admission 03/25/2019, shows hyperinflated lungs and emphysematous changes, diffuse mild bronchiectasis and bronchial wall thickening concerning for underlying bronchitis. CT of the brain was found to be no acute intracranial abnormalities. CT of the abdomen and pelvis show a large retroperitoneal mass 10 x 8.3 x 10 cm with central hypoattenuation consistent with necrosis. Findings are concerning for malignancy with lymphoma likely due to read in differential. She has a moderate sliding hiatal hernia, 1.3 cm hypodense right liver lesion indeterminate. CT of the chest with IV contrast PE protocol shows no evidence of pulmonary embolism. We do see a dilated esophagus with dependent fluid in the distal esophagus and terminates in the large hiatal hernia. There is a scattered tree and bud nodularity most notable in the dependent right lower lobe of the lung likely related to aspiration. Hyperinflated lungs were seen. She has pulmonary nodules seen as well. Abdominal x-ray on 03/27/2019, shows evidence of dilated small bowel with concerns of small bowel obstruction or ileus. On discharge 03/31/2019, still shows dilated loops of small bowel measuring 4.8 cm in maximum diameter compatible with an ileus versus obstruction. No free air present. HOSPITAL COURSE: This is an 88-year-old female with multiple comorbidities, of note severe protein-calorie malnutrition, has had decreased oral intake for several weeks to months, now came in to the ED with complaints of underlying cough and congestion and progressively weight loss. On arrival here, the patient was treated for underlying bronchitis for which the Pulmonary was consulted and was on IV antibiotics and neb treatments. Initially, her white count was elevated and then downtrended and then finally uptrended prior to being discharged. CT PE protocol was negative for any PE. On CT of the abdomen and pelvis, there was some concern for retroperitoneal mass concerning for underlying lymphoma. Hematology-Oncology was consulted. Due to overall poor performance and severely debilitated, very weak, Hematology-Oncology recommended hospice care. He did offer them a diagnosis if the family was interested, but the family did not and they declined. We did speak to the medical [id number], Dileep including multiple family members at bedside including the patient, who was alert, awake, and oriented x4 and discussed about biopsy of this mass. During that conversation, the family decided against any kind of biopsy and instead wanted her to be comfortable and pain free and eventually discharged to hospice. In relation to her severe protein-calorie nutrition, she continued to have multiple episodes of nausea and vomiting while here in the hospital stay, likely leading to her underlying malnutrition. She was found to have a large hiatal hernia and the family did not want that operated on. While here, her nausea and vomiting continued and she was started on IV PPN for nutrition. Imaging studies were consistent with an ileus versus a small bowel obstruction. At that time, General Surgery and GI were consulted. Due to the patient's overall comorbidities are multiple and poor state, it was advisable not to have any kind of surgical intervention instead conservative treatment. I also spoke with the family again Dileep, who is the MPOA, the patient, and multiple family members and the patient did not want to do anything instead wanted to go home on hospice. She does not want any medical treatment, did not want to be taking care of in terms of her medical needs and she was happy with what transpired and she wants to go home for the holidays. She was also found to have a presyncopal episode while at home likely to be vasovagal in nature. Cardiology was consulted. No further workup was needed. On discharge, the patient still had some nausea on examination. She was tolerating some diet and x-ray is consistent with a small bowel obstruction versus ileus. I had another family meeting with the patient and the medical [id number], Dileep by phone as well as other children at bedside about what the goals of care and plan of care in relation to Ms. Abarca. After further discussion, it seems that the patient does not want any further medical treatment instead she wants to go home. She is aware of the small bowel obstruction and ileus. She is aware that she has very decreased oral appetite and she is aware of the retroperitoneal mass and does not want further intervention or any workup in relation to her bowel obstruction or relation to any medical care. The family wanted to abide by the patient's wishes including the medical [id number] and instead they decided to go home with hospice care. I also reiterated with them that the bowel obstruction has now resolved and also her white count was elevated prior to being discharged. The patient still insists on going home. She wants to go home for the holidays. She is already on hospice and she understands what is going on with her. Family wanted to abide by the wishes of the patient and the medical [id number] agreed and the patient was discharged home with hospice care as per family, patient, and medical pfsri-[id number] wishes. NurseCaity was present throughout the entire conversation when we had discussed with them yesterday in the room. I also had multiple family meetings with the nursing staff present throughout this hospital stay as well. On discharge, the patient was at baseline with no other issues. On the day of discharge, vital signs were stable, labs reviewed. Imaging reviewed with the family. The patient seen and evaluated, examined thoroughly on the day of discharge, no other complaints. The patient verbalized understanding and agrees with plan of care to follow up accordingly as an outpatient with the primary care physician in 1 week. In the event if she wants further treatment, she was advised to come back to the emergency room for further management and care. Once again, the patient was discharged home with home hospice as per the patient and family's wishes and did not want any further intervention at this time. DISPOSITION: To home with hospice. CONDITION: Guarded. MEDICATIONS: See med reconciliation form. DIET: Heart-healthy. In the event of any worsening symptoms, the patient was advised to come back to the ED for further evaluation. Discharge summary took greater than 35 minutes. MD KEMI Jacobson/PAOLO /[id number]
== END 2019-03-31 18:30 | disposition hospice, home (50) | DRG 840 ==
LOC: ER 10:29 → ERHOLD 14:20 → MED/SURG 15:35 → OBSVTOIN 03-26 08:32
PROVIDERS: ADMIT Internal Medicine; ATTEND Internal Medicine
DX: C85.93 Non-Hodgkin lymphoma, unspecified, intra-abdominal lymph nodes (principal); E43 Unspecified severe protein-calorie malnutrition; Z68.1 Body mass index [BMI] 19.9 or less, adult; R64 Cachexia; E87.1 Hypo-osmolality and hyponatremia; K56.600 Partial intestinal obstruction, unspecified as to cause; J43.9 Emphysema, unspecified; I95.9 Hypotension, unspecified; R55 Syncope and collapse; R53.81 Other malaise; R16.0 Hepatomegaly, not elsewhere classified; J20.9 Acute bronchitis, unspecified; Z66 Do not resuscitate; E03.9 Hypothyroidism, unspecified; E86.0 Dehydration; E87.5 Hyperkalemia; Z51.5 Encounter for palliative care; Z99.81 Dependence on supplemental oxygen; K59.09 Other constipation; Z96.641 Presence of right artificial hip joint; K21.9 Gastro-esophageal reflux disease without esophagitis; D64.9 Anemia, unspecified; R33.9 Retention of urine, unspecified
CPT/HCPCS: 36415; 36600; 70450; 71045; 71260; 74018; 74019; 74177; 80048; 80053; 81001; 82103; 82150; 82550; 82553; 82785; 82805; 82948; 83690; 83735; 83880; 84132; 84443; 84484; 85025; 85610; 85730; 87086; 93005; 93306; 93880; 94640; 96365; 96366; 99284; G0378; J0696; J1650; J1817; J1940; J2270; J2405; J2550; J2765; J7030; J7050; J7799; Q9967